=== PATIENT | female | born 1930 | race Caucasian/White ===

== ENCOUNTER 2018-09-22 18:17 | Inpatient (IN) | payer MEDICARE ==
--- OUTSIDE RECORDS SUMMARY | 2018-09-22 19:23 | XMS REPORT | Continuity of Care Document ---
:1930 External Reference #:[id number] Author Name Cherelle Patel O.D. Address [address] [facility] [place] [address] Care Team Providers Name Role Phone Ender Ragland M.D. Primary Care Physician Unavailable Payers Date Identification Numbers Payment Provider Subscriber Policy Number: [id number] [facility] Delmi Calderon Group Number: [id number] [address] [address] PayID: [id number] PHYLLIS Marks [address] Advance Directives Description No Information Available Problems Date Description Provider Status Onset: Essential hypertension Active Onset: Hypercholesterolemia Active Onset: Hypothyroidism Active Onset: Hearing loss Active Onset: 08/27/2018 Vitreous degeneration Cherelle Patel O.D. 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 Family History Date Family Member(s) Observation Comments Father No Current Problems Mother No Current Problems Social History Type Date Description Comments Sex Unknown Marital Status Legal Status: Occupation Self-Employed [email or web address] Work Status Retired ETOH Use Denies alcohol use Tobacco Use Start: Unknown End: Unknown Patient is a former smoker Smoking Status Reviewed: 08/27/18 Patient is a former smoker Allergies, Adverse Reactions, Alerts Date Description Reaction Status Severity Comments 08/27/2018 Sulfa Antibiotics Active Medications Medication Date Status Form Strength Qnty SIG Indications Ordering Provider Sodium Chloride Active Ointment 5% 3.5unit apply to H18.51 Cherelle Ballard (Hypertonic) 019 s right eye dulce maria Patel O.DSada bedtime every night Wilfrido 128 02/18/2 Active Solution 5% 1 drop Cherelle Ballard Amarjit both eyes Jorge, 4 times O.D. daily Diazepam 00/0 Active Tablets 5mg Breiman, 000 Ender M.D. Atorvastatin 0 Active Tablets 10mg Take One Unknown Calcium 000 Tablet By Mouth AT Bedtime Irbesartan 0 Active Tablets 150mg Take 1 Unknown 000 Tablet By Mouth Every Day Synthroid 0 Active Tablets 50mcg Take 1 Unknown 000 Tablet By Mouth Every Day Benadryl 0 Active Tablets 25mg 1 daily Unknown Allergy 000 at at bedtime Immunizations Description No Information Available Vital Signs Description No Information Available Results Description No Information Available Procedures Date Code Description Status 04/04/2013 97694 Determination Of Refractive State Completed 04/04/2013 59993 Est Patient Comprehensive Exam Completed 04/04/2013 13389 Pachymetry Completed 10/12/2011 80201 New Patient Comprehensive Exam Completed 10/12/2011 94327 Pachymetry Completed 09/25/2006 60216 Determination Of Refractive State Completed 09/25/2006 77992 Est Patient Comprehensive Exam Completed 09/25/2006 35149 Pachymetry Completed 10/03/2004 35760 Est Patient Comprehensive Exam Completed 10/03/2004 44268 Pachymetry Completed Encounters Description No Information Available Plan of Treatment 08/27/2018 - Cherelle Patel O.D.H18.51 Endothelial corneal dystrophyNew Medication:Sodium Chloride (Hypertonic) 5 % - apply to right eye at bedtime every nightComments:Smoking can increase the risk of developing or worsening any eye related disease, as well as affect your overall health. If you are a smoker, we strongly recommend that you quit.If you are not a smoker, we strongly recommend that you do not start. 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 This may cause reduced vision. If you are noticing blurred vision, especially in the morning, use Wilfrido 128 ointment inaffected eyes before bedtime. USE ARTIFICIAL TEARS 4 TIMES A DAYH43.813 Vitreous degeneration, bilateralComments: You have Vitreous Floaters. If you have any changed in your floaters or flashing lights, please contact this office.Follow up:3-4 WEEKS DFE
[2018-09-22 19:28] LABS: ABS Basophils 0.2 10^3/ul (0-0.2); ABS Eosinophils 0.1 10^3/ul (0-0.6); ABS Lymphocytes 1.6 10^3/ul (1.0-4.8); ABS Monocytes 0.7 10^3/ul (0-0.8); ABS Neutrophils 14.7 10^3/ul (1.5-7.7); ABS Nucleated RBC 0 10^3/ul; Eosinophil % 0.3 %; Hematocrit 44 % (33-41); Hemoglobin 14.7 g/dL (12.0-16.0); Lymphocyte % 9.1 %; Mean Corpuscular HGB Conc 34 g/dL (31-36); Mean Corpuscular Hemoglobin 32 pg (27-31); Mean Corpuscular Volume 93 fL (80-97); Mean Platelet Volume 8.7 fL (7.4-10.4); Nucleated Red Blood Cells % 0; Platelet Count 275 10^3/uL (150-450); Red Blood Count 4.68 10^6 /uL (3.70-4.87); Red Cell Distribution Width 13 % (10.5-15); White Blood Count 17.2 10^3/uL (3.5-10.8)
[2018-09-22 19:34] LABS: INR 0.85 (0.77-1.02)
[2018-09-22 19:45] LABS: Albumin 4.7 g/dL (3.2-5.2); Albumin/Globulin Ratio 1.5 (1-3); BUN/Creatinine Ratio 13.9 (8-20); C Reactive Protein 7.72 mg/L (<8.01); Calcium 10.2 mg/dL (8.6-10.3); EGFR African American 41.6 (>60); EGFR Non-African American 34.4 (>60); Globulin 3.2 g/dL (2-4); Magnesium 2.4 mg/dL (1.9-2.7); Potassium 4.8 mmol/L (3.5-5.0); Total Bilirubin 0.5 mg/dL (0.2-1.0); Total Protein 7.9 g/dL (6.4-8.9)
[2018-09-22 19:55] LABS: Urine Appearance Cloudy; Urine Bacteria Absent (Absent); Urine Bilirubin Negative (Negative); Urine Blood Negative (Negative); Urine Color Yellow; Urine Glucose Negative (Negative); Urine Ketones Negative (Negative); Urine Nitrite Negative (Negative); Urine Protein 1+(30 mg/dL) (Negative); Urine Red Blood Cell Absent (Absent); Urine Specific Gravity 1.021 (1.010-1.030); Urine Squamous Epithelial Cell Present (Absent); Urine Urobilinogen Negative (Negative); Urine White Blood Cell 1+(6-10/hpf) (Absent)
[2018-09-22] MEDS ORDERED: Morphine 10 MG/ML VIAL (1 ml) IV ONE (20:50)
[2018-09-22] MEDS ORDERED: Ondansetron INJ* 2 MG/ML VIAL IV ONE (20:51)
--- NOTE | 2018-09-22 21:01 | ED ---
Abdominal Pain/Female - HPI Summary HPI Summary: Patient complains of abdominal pain starting this morning. Abdominal pain started under bilateral breasts and to right lower quadrant, described as constant. Patient denies fever, cough, sore throat, CP, SOB, N/V/D, change in urine, change in BM, vaginal symptoms. Medical history is hypothyroid, HDL. Abdominal surgical history is sigmoid resection 2010. - History of Current Complaint Chief Complaint: EDAbdPain Stated Complaint: GROIN PAIN PER EMS Time Seen by Provider: 09/22/18 18:58 Hx Obtained From: Patient Onset/Duration: Sudden Onset Timing: Constant Severity Initially: Severe Severity Currently: Severe Pain Intensity: 8 Pain Scale Used: 0-10 Numeric Location: Diffuse, Discrete At: RLQ Radiates: No Character: Sharp Aggravating Factor(s): Nothing Alleviating Factor(s): Nothing Associated Signs and Symptoms: Positive: Negative Allergies/Adverse Reactions: Allergies Allergy/AdvReac Type Severity Reaction Status Date / Time penicillin G Allergy Rash Verified 09/22/18 22:19 shellfish derived Allergy Hives Verified 09/22/18 22:19 Sulfa (Sulfonamide Allergy Hives Verified 09/22/18 22:19 Antibiotics) Home Medications: Home Medications Glycerin ADULT SUPP* 1 supp NE PRN 09/22/18 [History] PMH/Surg Hx/FS Hx/Imm Hx Endocrine/Hematology History: Denies: Hx Anticoagulant Therapy Cardiovascular History: Reports: Hx Hypercholesterolemia Denies: Hx Pacemaker/ICD GI History: Reports: Hx Gastroesophageal Reflux Disease Musculoskeletal History: Reports: Hx Arthritis Sensory History: Denies: Hx Hearing Aid Opthamlomology History: Denies: Hx Eye Prosthesis Neurological History: Reports: Other Neuro Impairments/Disorders Denies: Hx Dementia Psychiatric History: Reports: Hx Anxiety Denies: Hx Panic Disorder - Surgical History Surgery Procedure, Year, and Place: COLORECTAL- RESECTION. CYST - REMOVED FROM [place] BREAST. TUBAL LIGATION Infectious Disease History: No Infectious Disease History: Denies: Traveled Outside the [place] in Last 30 Days - Family History Known Family History: Negative: Blood Disorder - Social History Alcohol Use: None Substance Use Type: Reports: None Smoking Status (MU): Former Smoker Type: Cigarettes Have You Smoked in the Last Year: No Review of Systems Constitutional: Negative Eyes: Negative ENT: Negative Cardiovascular: Negative Respiratory: Negative Positive: Abdominal Pain Genitourinary: Negative Musculoskeletal: Negative Skin: Negative Neurological: Negative Psychological: Normal All Other Systems Reviewed And Are Negative: Yes Physical Exam - Summary Physical Exam Summary: Palpation of abdomen resulting right lower quadrant pain and ladder were palpated. Lung sounds clear to auscultation bilaterally. RRR. No pain with palpation of chest. Triage Information Reviewed: Yes Vital Signs On Initial Exam: Initial Vitals Temp Pulse Resp BP Pulse Ox 97.7 F 93 15 172/74 99 09/22/18 18:35 09/22/18 18:35 09/22/18 18:35 09/22/18 18:35 09/22/18 18:35 Vital Signs Reviewed: Yes Appearance: Positive: Well-Appearing Skin: Positive: Warm Head/Face: Positive: Normal Head/Face Inspection Eyes: Positive: Normal Neck: Positive: Supple Respiratory/Lung Sounds: Positive: Clear to Auscultation Cardiovascular: Positive: Normal Abdomen Description: Positive: Other: Musculoskeletal: Positive: Normal Neurological: Positive: Normal Psychiatric: Positive: Normal AVPU Assessment: Alert - [place] Coma Scale Best Eye Response: 4 - Spontaneous Best Motor Response: 6 - Obeys Commands Best Verbal Response: 5 - Oriented Coma Scale Total: 15 Diagnostics - Vital Signs Vital Signs Temp Pulse Resp BP Pulse Ox 09/22/18 20:44 98.0 F 92 16 180/71 97 09/22/18 18:35 97.7 F 93 15 172/74 99 - Laboratory Lab Results: Lab Results 09/22/18 09/22/18 09/22/18 Range/Units 19:22 19:22 19:22 WBC 17.2 H (3.5-10.8) 10^3/uL RBC 4.68 (3.70-4.87) 10^6 /uL Hgb 14.7 (12.0-16.0) g/dL Hct 44 H (33-41) % MCV 93 (80-97) fL MCH 32 H (27-31) pg MCHC 34 (31-36) g/dL RDW 13 (10.5-15) % Plt Count 275 (150-450) 10^3/uL MPV 8.7 (7.4-10.4) fL Neut % (Auto) 85.4 % Lymph % (Auto) 9.1 % Crane % (Auto) 4.3 % Eos % (Auto) 0.3 % Baso % (Auto) 0.9 % Absolute Neuts (auto) 14.7 H (1.5-7.7) 10^3/ul Absolute Lymphs (auto) 1.6 (1.0-4.8) 10^3/ul Absolute Monos (auto) 0.7 (0-0.8) 10^3/ul Absolute Eos (auto) 0.1 (0-0.6) 10^3/ul Absolute Basos (auto) 0.2 (0-0.2) 10^3/ul Absolute Nucleated RBC 0 10^3/ul Nucleated RBC % 0 INR (Anticoag Therapy) 0.85 (0.77-1.02) Sodium 141 (135-145) mmol/L Potassium 4.8 (3.5-5.0) mmol/L Chloride 101 (101-111) mmol/L Carbon Dioxide 30 (22-32) mmol/L Anion Gap 10 (2-11) mmol/L BUN 20 (6-24) mg/dL Creatinine 1.44 H (0.51-0.95) mg/dL Est GFR ( Amer) 41.6 (>60) Est GFR (Non-Af Amer) 34.4 (>60) BUN/Creatinine Ratio 13.9 (8-20) Glucose 136 H (70-100) mg/dL Calcium 10.2 (8.6-10.3) mg/dL Magnesium 2.4 (1.9-2.7) mg/dL Total Bilirubin 0.50 (0.2-1.0) mg/dL AST 23 (13-39) U/L ALT 22 (7-52) U/L Alkaline Phosphatase 70 (34-104) U/L Troponin I (<0.04) ng/mL C-Reactive Protein 7.72 (<8.01) mg/L Total Protein 7.9 (6.4-8.9) g/dL Albumin 4.7 (3.2-5.2) g/dL Globulin 3.2 (2-4) g/dL Albumin/Globulin Ratio 1.5 (1-3) Lipase 19 (11.0-82.0) U/L Urine Color Urine Appearance Urine pH (5-9) Ur Specific [place] (1.010-1.030) Urine Protein (Negative) Urine Ketones (Negative) Urine Blood (Negative) Urine Nitrate (Negative) Urine Bilirubin (Negative) Urine Urobilinogen (Negative) Ur Leukocyte Esterase (Negative) Urine WBC (Auto) (Absent) Urine RBC (Auto) (Absent) Ur Squamous Epith Cells (Absent) Urine Bacteria (Absent) Hyaline Casts (Absent) Urine Glucose (Negative) 09/22/18 09/22/18 Range/Units 19:22 19:40 WBC (3.5-10.8) 10^3/uL RBC (3.70-4.87) 10^6 /uL Hgb (12.0-16.0) g/dL Hct (33-41) % MCV (80-97) fL MCH (27-31) pg MCHC (31-36) g/dL RDW (10.5-15) % Plt Count (150-450) 10^3/uL MPV (7.4-10.4) fL Neut % (Auto) % Lymph % (Auto) % Crane % (Auto) % Eos % (Auto) % Baso % (Auto) % Absolute Neuts (auto) (1.5-7.7) 10^3/ul Absolute Lymphs (auto) (1.0-4.8) 10^3/ul Absolute Monos (auto) (0-0.8) 10^3/ul Absolute Eos (auto) (0-0.6) 10^3/ul Absolute Basos (auto) (0-0.2) 10^3/ul Absolute Nucleated RBC 10^3/ul Nucleated RBC % INR (Anticoag Therapy) (0.77-1.02) Sodium (135-145) mmol/L Potassium (3.5-5.0) mmol/L Chloride (101-111) mmol/L Carbon Dioxide (22-32) mmol/L Anion Gap (2-11) mmol/L BUN (6-24) mg/dL Creatinine (0.51-0.95) mg/dL Est GFR ( Amer) (>60) Est GFR (Non-Af Amer) (>60) BUN/Creatinine Ratio (8-20) Glucose (70-100) mg/dL Calcium (8.6-10.3) mg/dL Magnesium (1.9-2.7) mg/dL Total Bilirubin (0.2-1.0) mg/dL AST (13-39) U/L ALT (7-52) U/L Alkaline Phosphatase (34-104) U/L Troponin I 0.01 (<0.04) ng/mL C-Reactive Protein (<8.01) mg/L Total Protein (6.4-8.9) g/dL Albumin (3.2-5.2) g/dL Globulin (2-4) g/dL Albumin/Globulin Ratio (1-3) Lipase (11.0-82.0) U/L Urine Color Yellow Urine Appearance Cloudy Urine pH 7.0 (5-9) Ur Specific [place] 1.021 (1.010-1.030) Urine Protein 1+(30 mg/dl) A (Negative) Urine Ketones Negative (Negative) Urine Blood Negative (Negative) Urine Nitrate Negative (Negative) Urine Bilirubin Negative (Negative) Urine Urobilinogen Negative (Negative) Ur Leukocyte Esterase 2+ A (Negative) Urine WBC (Auto) 1+(6-10/hpf) A (Absent) Urine RBC (Auto) Absent (Absent) Ur Squamous Epith Cells Present A (Absent) Urine Bacteria Absent (Absent) Hyaline Casts Present A (Absent) Urine Glucose Negative (Negative) Result Diagrams: 09/22/18 19:22 09/22/18 19:22 Lab Statement: Any lab studies that have been ordered have been reviewed, and results considered in the medical decision making process. Abdominal Pain Fem Course/Dx - Course Course Of Treatment: Patient complains of abdominal pain starting this morning. Abdominal pain started under bilateral breasts and to right lower quadrant, described as constant. Patient denies fever, cough, sore throat, CP, SOB, N/V/D , change in urine, change in BM, vaginal symptoms. Medical history is hypothyroid, HDL. Abdominal surgical history is sigmoid resection 2010. Physical exam:Palpation of abdomen resulting right lower quadrant pain and ladder were palpated. Lung sounds clear to auscultation bilaterally. RRR. No pain with palpation of chest. Vital signs within normal limits. WBC 17.2. CR 1.44. Last prior creatinine level taken [address]A [address] UTI. CT abdomen and pelvis without contrast positive for dilated appendix with multiple appendicoliths, positive for fluid, negative for inflammatory changes in adjacent mesentery. Discussed patient with Dr. pierre [facility] surgery cotton factor who recommended admission to hospitalist and he will consult tomorrow. Admission to hospitalist. - Diagnoses Provider Diagnoses: Appendicitis Discharge - Sign-Out/Discharge Documenting (check all that apply): Patient Departure Patient Received Moderate/Deep Sedation with Procedure: No - Discharge Plan Condition: Stable Disposition: HOME - Billing Disposition and Condition Condition: STABLE Disposition: Home
[2018-09-22] MEDS ORDERED: Magnesium Hydroxide LIQ* 30 ML UDC PO PRN (22:13)
[2018-09-22] MEDS ORDERED: Diazepam TAB(*) 5 MG PO PRN (22:13)
[2018-09-22] MEDS ORDERED: Piperacillin/Tazobac ADVAN(*) 3.375 GM in NS 0.9% 100 ML* 100 ML IVPB ONE (22:15)
[2018-09-22] MEDS ORDERED: Acetaminophen TAB* 325 MG PO PRN (22:15)
[2018-09-22] MEDS ORDERED: Lactated Ringers 1000 ML Bag* 1,000 ML IV.FLUID IV ONE (22:15)
[2018-09-22] MEDS ORDERED: PROCHLORPERAZINE INJ 5 MG/ML 2 ML VIAL IV PRN (22:15)
[2018-09-22] MEDS ORDERED: hydrALAZINE IV* 20 MG/ML VIAL IV SLOW PU PRN (22:16)
[2018-09-22] MEDS ORDERED: Morphine 4 MG/ML VIAL (1 ml) 4 MG/ML VIAL IV PRN (22:18)
[2018-09-22] MEDS ORDERED: Zosyn per Pharmacy* NOTE FOLLOW UP SCH (23:00)
[2018-09-22] MEDS ORDERED: Cefepime(*) 1 GM in NS 0.9% 50 ML* 50 ML IVPB ONE (23:17)
[2018-09-23] MEDS ORDERED: NS 0.9% 50 ML* 50 ML ONE
--- NOTE | 2018-09-23 00:13 | HP ---
CC: Dr. Ragland; Dr. Rizo HISTORY AND PHYSICAL: DATE OF ADMISSION: 09/22/18 TIME OF EVALUATION: 10 p.m. PRIMARY CARE PROVIDER: Dr. Ragland. CONSULTING GENERAL SURGEON: Dr. Rizo. CHIEF COMPLAINT: Abdominal pain. HISTORY OF PRESENT ILLNESS: Mrs. Calderon is an 88-year-old lady with a past medical history of anxiet y, hypertension, hyperlipidemia, hypothyroidism, sigmoid colectomy secondary to sigmoid polyp, who pr esented to the emergency room with complaints of abdominal pain. The patient states she woke up in her usual state of health, and around 11 a.m., she started to have epigastric pain radiating to under her breast. She thought that her bra was chafing her skin, so she removed her bra, but the pain persisted, and as the day went by, the pain traveled to her lower abdo men, mostly on the right lower quadrant. The patient states that she was very concerned as her mothe r had right lower quadrant pain for a week, and by the time she sought medical attention, she had per forated appendicitis. So, the patient came to the emergency room today concerned with that possibili ty. She states she had a regular breakfast of cereal, but later on her appetite was gone and she has not had any food since 8 in the morning. She denies nausea and vomiting. She describes a small formed b owel movement earlier today. There is no fever, chills, chest pain, palpitation, shortness of breath , cough, or urinary complaints. PAST MEDICAL HISTORY: 1. Hypertension. 2. Hyperlipidemia. 3. Anxiety. 4. Hypothyroidism. 5. Status post laparoscopic tubal ligation. 6. History of right ankle and left wrist fractures. 7. Status post laparoscopic sigmoid resection secondary to sigmoid polyp. Pathology revealed to an a denomatous polyp with no high-grade dysplasia or malignancy. MEDICATION LIST: 1. Acetaminophen 500 mg p.o. b.i.d. 2. Atorvastatin 10 mg p.o. daily. 3. Diazepam 5 mg p.o. b.i.d. as needed for anxiety. The patient states that she tried to quit this medication in the past but developed severe muscle spasms. 4. Irbesartan 150 mg p.o. daily. 5. Levothyroxine 50 mcg p.o. daily. 6. Milk of magnesia 15 mL p.o. daily. ALLERGIES: To PENICILLIN, SHELLFISH, and SULFA. FAMILY HISTORY: Mother had perforated appendicitis and also rectal cancer. SOCIAL HISTORY: The patient was a smoker until 2010, but she has quit. No history of alcohol or rayo g use. Surrogate decision maker is her sister, Barbara Meyer, phone number is [phone]. REVIEW OF SYSTEMS: A 14-point review of systems was performed and all the pertinent negative and pos itive findings are in the HPI. PHYSICAL EXAMINATION GENERAL: The patient is a pleasant elderly lady, lying in the stretcher, in no acute distress. VITAL SIGNS: Temperature 98.0, heart rate is 97, respiratory rate is 17, oxygen saturation 97% on ro om air, blood pressure is 172/74. HEENT: Pupils are equal. Moist mucous membranes. CHEST: Breath sounds present bilaterally with no added sounds. CVS: Normal S1, S2. Regular rate and rhythm. ABDOMEN: Obese, soft with right lower quadrant tenderness. No guarding. No rebound. Bowel sounds are present. EXTREMITIES: No edema. NEURO: She is alert and oriented x3. Able to move all 4 extremities. LABORATORY AND IMAGING DATA: The patient had a CBC that showed a WBC of 17.2, hemoglobin of 14.7, h ematocrit of 44, platelets of 275 with 85% neutrophils. INR is 0.85. Chemistries are sodium of 141, potassium of 4.8, chloride of 101, bicarb of 30, BUN of 20, creatinine of 1.4, glucose of 136, calci um of 10.2, magnesium of 2.4. LFTs are normal. Lipase is 19. Troponin 0.01. Urinalysis showed 1 + protein, 2+ leukocyte esterase, 1+ wbc's, but squamous epithelial cells are pre sent. CT of the abdomen and pelvis without contrast showed dilated appendix with multiple appendicolith, bu t no inflammatory changes in the adjacent mesentery. Findings could represent early appendicitis. Chest x-ray has not been officially read, but to my read there is no acute pulmonary disease. EKG done on 09/22/18 at 8 p.m. showed sinus rhythm at 96 beats per minute with no acute ischemic dawson ges, no significant change when compared to prior EKG from April 2011. ASSESSMENT AND PLAN: Ms. Calderon is an 88-year-old lady with a past medical history of hypertension, hyperlipidemia, hypothyroidism, anxiety who presented to the emergency room with less than 12 hours o f abdominal pain, now localized to her right lower quadrant with CT findings that suggest early appen dicitis. 1. Sepsis. The patient's presentation is compatible with sepsis with tachycardia and leukocytosis. QSOFA is 0. Source is probable early appendicitis. The patient will receive IV fluids, blood cultu res will be sent, and we are going to check a lactic acid. She will be started empirically on Zosyn. 2. Probable early appendicitis. General Surgery (Dr. Rizo) was called by the emergency room provi og and the plan at this point is to continue treatment with antibiotics and she will be seen in cons ultation. Hopefully, she will respond to conservative treatment and will not require surgery. We wi ll continue pain medications. 3. Hypertension. It is on the higher side. She will have her ARB order but also have hydralazine p .r.n. 4. Hypothyroidism. Continue levothyroxine. 5. Hyperlipidemia. Continue atorvastatin. 6. Anxiety. We will continue diazepam. The patient states that in the past when she tried to stop taking this medication she had "horrible muscle spasms." 7. DVT prophylaxis. The patient has a score of 4 on the DVT Prophylaxis Assessment Guide and she wi ll have SCDs for now as there is a possibility of needing surgery in the near future. 8. Code status is full. TIME SPENT: Approximately 50 minutes was spent with patient interview, medical records review, physi cameron examination to complete this admission; more than half this time was spent [id number] with the patient in coordination of care. [id number]/[facility] #: [id number]
[2018-09-23] MEDS: Morphine 4 MG/ML VIAL (1 ml) 4 MG/ML VIAL IV PRN ×3 (03:35→18:47)
[2018-09-23] MEDS: Lactated Ringers 1000 ML Bag* 1,000 ML IV SCH ×4 (03:51→21:12)
--- NOTE | 2018-09-23 04:01 | PN ---
Hospitalist Progress Note Date of Service: 09/23/18 HOSPITALIST ADDENDUM Called by RN because LA is 6.3. Patient re-evaluated at bedside. Selected Entries 09/23/18 09/23/18 00:49 03:27 Temperature 98.3 F Pulse Rate 111 Respiratory 20 Rate Blood Pressure 188/84 (mmHg) O2 Sat by Pulse 95 Oximetry Elderly lady lying in bed, appears uncomfortable, but not in distress. CVS: normal S1 and S2, RRR Chest: BS+ bilaterally with no added sounds Abd: obese, soft, RLQ tenderness, + rebound, BS+ diminished Neuro: AAOx3, JAIMES A/P: Severe sepsis secondary to intra-abdominal source (?early appendicitis) - Case d/w Dr Funes and Dr Rizo. - Transfer to ICU. - Continue IVF and monitor LA - she has good capillary refill, good mentation. - Place Mckay to monitor UO. - Add Flagyl.
[2018-09-23] MEDS: metroNIDAZOLE IV 500 MG/100ML* 500 MG/100 ML BAG IVPB SCH ×3 (04:34→21:45)
[2018-09-23] MEDS ORDERED: Morphine 4 MG/ML VIAL (1 ml) 4 MG/ML VIAL IV ONE (04:34)
[2018-09-23] MEDS: Levothyroxine TAB* 50 MCG TAB PO SCH (05:13)
[2018-09-23] MEDS ORDERED: fentaNYL* 50 MCG/ML 2 ML VIAL (100 MCG VIAL) ONE ×2 (05:24→06:14)
[2018-09-23] MEDS ORDERED: Propofol* 10 MG/ML 20 ML BTL ONE (05:24)
[2018-09-23] MEDS ORDERED: Midazolam* 1 MG/ML 2 ML VIAL (2 MG) ONE (05:24)
[2018-09-23] MEDS ORDERED: Phenylephrine 10 MG/ML VIAL* 1 ML VIAL ONE (05:24)
[2018-09-23] MEDS ORDERED: Ondansetron INJ* 2 MG/ML VIAL ONE (05:24)
[2018-09-23] MEDS ORDERED: Cisatracurium* 2 MG/ML MDV 5 ML ONE (05:24)
[2018-09-23] MEDS ORDERED: Dexamethasone IV* 4 MG/ML 1 ML (4 MG) ONE (05:24)
[2018-09-23] MEDS ORDERED: Lidocaine 2% PF * 5 ML VIAL ONE (05:24)
[2018-09-23 05:40] LABS: Urine Appearance Clear; Urine Bacteria Absent (Absent); Urine Bilirubin Negative (Negative); Urine Blood Negative (Negative); Urine Color Yellow; Urine Glucose Negative (Negative); Urine Ketones Negative (Negative); Urine Nitrite Negative (Negative); Urine Protein 1+(30 mg/dL) (Negative); Urine Red Blood Cell Trace(0-2/hpf) (Absent); Urine Specific Gravity 1.017 (1.010-1.030); Urine Urobilinogen Negative (Negative); Urine White Blood Cell Trace(0-5/hpf) (Absent)
[2018-09-23] MEDS ORDERED: Acetaminophen IV 1GM/100ML * 1,000 MG/100 ML VIAL IVPB ONE (06:36)
[2018-09-23] MEDS ORDERED: fentaNYL* 50 MCG/ML 2 ML VIAL (100 MCG VIAL) IV PRN (06:36)
[2018-09-23] MEDS ORDERED: Naloxone* 0.4 MG/ML 1 ML VIAL IV PRN (06:36)
[2018-09-23] MEDS ORDERED: Ondansetron INJ* 2 MG/ML VIAL IV PRN (06:36)
[2018-09-23] MEDS ORDERED: Neostigmine Methylsulfate* 1 MG/ML 10 ML VIAL (1 mg/ml) ONE (06:38)
[2018-09-23] MEDS ORDERED: Glycopyrrolate IV* 0.2 MG/ML 1 ML VIAL ONE (06:38)
--- NOTE | 2018-09-23 06:54 | CONS ---
CC: Donald Rizo MD; Dr. Ragland CONSULTATION REPORT: DATE OF CONSULT: HISTORY: Ms. Calderon is an 88-year-old female in reasonable health for age who presented to the [facility] en[facility] room with abdominal pain that started a kind of epigastric or inframammary, but then gradually s hifted to the lower abdomen, more on the right than on the left. She ate normally yesterday, but her appetite has since gone. She has not had nausea and vomiting. She had some bowel movement yesterda y. No blood in the stool or urine. She has had a previous sigmoid colectomy about 8 years ago for b enign disease. PAST MEDICAL HISTORY: Most significant for hypertension, anxiety, and hypothyroidism. PHYSICAL EXAMINATION: She is a well-developed, well-nourished, elderly female consistent with stated age. Skin is warm and well perfused. She is not diaphoretic. She is not jaundiced. She is alert and coherent. She is tachycardic and hypertensive and maintaining good oxygenation on room air. Abd omen is obese and somewhat guarded on exam. She is a quite tender all across the lower abdomen that seems to be more on the right than on the left. She does have cough tenderness and some mild rebound tenderness. There are no obvious masses. No obvious hernias. DIAGNOSTIC STUDIES/LAB DATA: Show a white blood count of 17,000 with may be a little left shift and electrolytes are essentially normal. Creatinine is slightly elevated at 1.4 and she does have a lact ic acidosis. CT scan done earlier this evening shows appendiceal fecal lithiasis with dilated append ix, but no evidence of acute inflammation. IMPRESSION: An 88-year-old female with severe abdominal pain starting to develop peritoneal findings with appendiceal fecal lithiasis, now concerning for possible perforation of the fecalith. I discuss ed this with Dr. De La Cruz and with the patient and I recommend going to the operating room for laparosc opic appendectomy. She understands the procedure, the rationale, the risks, and the potential recove ry. All of her questions have been answered and we will proceed to the operating room [facility]. [id number]/[facility] #: [id number]
[2018-09-23 07:39] LABS: Hematocrit 43 % (33-41); Hemoglobin 14.1 g/dL (12.0-16.0); Mean Corpuscular HGB Conc 33 g/dL (31-36); Mean Corpuscular Hemoglobin 31 pg (27-31); Mean Corpuscular Volume 95 fL (80-97); Mean Platelet Volume 9.3 fL (7.4-10.4); Platelet Count 249 10^3/uL (150-450); Red Blood Count 4.52 10^6 /uL (3.70-4.87); Red Cell Distribution Width 13 % (10.5-15); White Blood Count 18.2 10^3/uL (3.5-10.8)
[2018-09-23 07:46] LABS: BUN/Creatinine Ratio 12.1 (8-20); Calcium 8.8 mg/dL (8.6-10.3); EGFR African American 49.4 (>60); EGFR Non-African American 40.8 (>60); Potassium 4.5 mmol/L (3.5-5.0)
[2018-09-23 08:10] LABS: ABS Neutrophils 16.2 10^3/ul (1.5-7.7); Immature Granulocytes 5 % (0-9); Lymphocytes % 5 %; Monocytes % 6 %; Myelocytes % 1 % (0-1); Neutrophil % 84 %
--- NOTE | 2018-09-23 08:49 | OP ---
CC: Dr. Donald Rizo; Dr. Ragland OPERATIVE REPORT: DATE OF OPERATION: 09/23/18 DATE OF : [birth year] SURGEON: Dr. Donald Rizo. WINCH OPERATOR: None. ANESTHESIOLOGIST: Dr. Erickson. ANESTHESIA: General anesthetic, local infiltration. PRE-OP DIAGNOSIS: Perforated appendicitis. POST-OP DIAGNOSIS: Perforated appendicitis. OPERATIVE PROCEDURE: Laparoscopic appendectomy. DESCRIPTION OF PROCEDURE: The patient was laid supine on the operative table. After adequate general anesthetic, compression stockings, and warmer shoes, abdomen was prepped, draped in a sterile fashio n. Local infiltrative anesthesia was administered. A small umbilical incision was created. Blunt p ort cannula was placed and insufflation was carried out with carbon dioxide. Under direct vision, le ft lower quadrant and left midabdominal 5 mm cannulae were placed. There was cloudy drainage in the pelvis and some purulent exudate. The appendix was visualized and appeared to be perforation at the midportion of the appendix. The mesoappendix was divided using an EndoGIA stapler munguia load and the base of the appendix with an EndoGIA stapler villalba load. Appendix was placed in retrieval bag and brou ght out through the umbilical site. The operative field was irrigated with warm saline solution, eliz e fluid was suctioned out. A culture of the peritoneal fluid had been taken and after adequate sucti oning, everything was in good condition. Hemostasis was good at the staple line. The cannulae were removed. Pneumoperitoneum allowed to escape. The umbilical fascia was closed with 0-Vicryl. Skin was closed with 5-0 Vicryl, followed by Steri-Strips. She tolerated the procedure well, was awakened, and brought to recovery in good condition. COMPLICATIONS: No complications. DRAINS: No drains. PATHOLOGIC SPECIMEN: Appendix. COUNTS: Sponge and instrument counts were correct. ESTIMATED BLOOD LOSS: Less than 30 mL. [id number]/[facility] #: [id number]
[2018-09-23] MEDS: Atorvastatin* 10 MG TAB PO SCH (08:58)
[2018-09-23] MEDS ORDERED: Losartan TAB* 25 MG PO SCH (09:00)
--- NOTE | 2018-09-23 09:11 | PN ---
Sepsis Event Evaluation Date of Evaluation: 09/23/18 Time of Evaluation: 07:00 Current Stage of Sepsis: Septic Shock Vital Signs - Last 12 Hours: Vital Signs - 12 hr Temp Pulse Resp BP Pulse Ox 09/23/18 09:01 100.6 F 111 19 95 09/23/18 09:00 100.8 F 115 24 133/67 95 09/23/18 08:58 23 09/23/18 08:30 100.8 F 112 20 111/83 94 09/23/18 08:02 100.6 F 132 20 139/70 95 09/23/18 08:01 100.6 F 134 22 154/133 95 09/23/18 07:59 100.6 F 130 26 139/70 90 09/23/18 07:46 100.4 F 130 28 119/62 98 09/23/18 07:30 100.2 F 131 30 188/84 98 18/ 07:23 100.2 F 135 21 175/85 94 09/23/18 07:22 100.2 F 124 33 97 09/23/18 07:01 99.7 F 120 32 183/84 100 18 06:55 99.7 F 119 29 177/72 98 18/19 06:52 119 87 18/ 06:51 97.5 F 120 153/80 86 18/19 05:30 100.9 F 120 22 151/78 97 18/19 05:15 22 09/23/ 05:12 18 09/23/18 05:00 100.9 F 120 27 186/86 98 18/19 04:56 99.3 F 120 22 186/86 98 18/19 04:45 100.8 F 120 22 187/89 99 18/19 04:30 100.2 F 117 21 210/92 99 18/19 04:18 122 28 189/92 92 18/19 04:15 22 18/19 03:35 20 18/19 03:27 111 20 188/84 18/19 01:25 20 18/19 00:49 98.3 F 113 19 199/65 95 18/ 00:21 98.1 F 117 17 170/93 94 09/22/ 21:59 98.0 F 97 17 191/80 97 09/22/18 21:49 16 Lactic Acid: 09/23/18 09/23/18 02:44 07:00 Lactic Acid 6.3 H* 4.4 H* Exceptions to Standard of Care: Patient with good BP, good capillary refill, good UO and responding to IVF, so will not start pressors for now. - Cardiopulmonary Exam Capillary Refill: Immediate Respiratory: Symmetrical Chest Expansion and Respiratory Effort, Clear to Auscultation Cardiovascular: RRR - Normal S1 and S2 - Peripheral Pulse Exam Radial Pulses: Bilateral Normal Pedal Pulses: Bilateral Normal Posterior Tibial Pulse: Bilateral Normal Femoral Pulses: Bilateral Normal Popliteal Pulses: Bilateral Normal - Skin Exam Skin Exam: Normal Turgor - [place] Coma Scale Best Eye Response: 4 - Spontaneous Best Motor Response: 6 - Obeys Commands Best Verbal Response: 5 - Oriented Coma Scale Total: 15 Assess/Plan/Problems-Billing Assessment: Septic shock secondary to appendicitis. Taken to OR and found to have perforated appy. Responding to IVF with improvement of LA to 4.4.
--- NOTE | 2018-09-23 14:18 | PN ---
Subjective Interval History: Pt post-op this morning. She reports feeling better than when she came in - only with mild fatigue and abdominal pain, both improved from before. Asking for water and food. Last fever was this morning, 100.4 at 9 AM. Was started on cefepime / Flagyl overnight. Objective Active Medications: Acetaminophen (Tylenol Tab*) 650 mg PO Q6H PRN PRN Reason: pain/fever Atorvastatin Calcium (Lipitor*) 10 mg PO DAILY [facility] Last Admin: 09/23/18 08:58 Dose: 10 mg Diazepam (Valium Tab(*)) 5 mg PO BID PRN PRN Reason: ANXIETY Cefepime HCl (Maxipime 1 Gm In Dextrose Duplex (*)) 1 gm in 50 mls @ 100 mls/ hr IV Q24H [facility] Metronidazole/Sodium Chloride (Flagyl 500 Mg Ivpb*) 500 mg in 100 mls @ 100 mls /hr IVPB Q8H [facility] Last Admin: 09/23/18 11:47 Dose: 100 mls/hr Lactated Ringer's (Lactated Ringers 1000 Ml Bag*) 1,000 mls @ 100 mls/hr IV .PER RATE [facility] Last Admin: 09/23/18 13:52 Dose: 100 mls/hr Levothyroxine Sodium (Synthroid Tab*) 50 mcg PO DAILY@0600 [facility] Last Admin: 09/23/18 05:13 Dose: Not Given Magnesium Hydroxide (Milk Of Magnesia Liq*) 15 ml PO DAILY PRN PRN Reason: CONSTIPATION Morphine Sulfate (Morphine Vial*) 1 mg IV Q2H PRN PRN Reason: SEVERE PAIN Last Admin: 09/23/18 08:58 Dose: 1 mg Prochlorperazine Edisylate (Compazine Inj*) 5 mg IV Q6H PRN PRN Reason: NAUSEA/VOMITING Vital Signs - 8 hr 09/23/18 09/23/18 09/23/18 06:51 06:52 06:55 Temperature 97.5 F 99.7 F Pulse Rate 120 119 119 Respiratory 29 Rate Blood Pressure 153/80 177/72 (mmHg) O2 Sat by Pulse 86 87 98 Oximetry 09/23/18 09/23/18 09/23/18 07:01 07:22 07:23 Temperature 99.7 F 100.2 F 100.2 F Pulse Rate 120 124 135 Respiratory 32 33 21 Rate Blood Pressure 183/84 175/85 (mmHg) O2 Sat by Pulse 100 97 94 Oximetry 09/23/18 09/23/18 09/23/18 07:30 07:46 07:59 Temperature 100.2 F 100.4 F 100.6 F Pulse Rate 131 130 130 Respiratory 30 28 26 Rate Blood Pressure 188/84 119/62 139/70 (mmHg) O2 Sat by Pulse 98 98 90 Oximetry 09/23/18 09/23/18 09/23/18 08:00 08:01 08:02 Temperature 100.6 F 100.6 F Pulse Rate 134 132 Respiratory 24 22 20 Rate Blood Pressure 154/133 139/70 (mmHg) O2 Sat by Pulse 95 95 95 Oximetry 09/23/18 09/23/18 09/23/18 08:30 08:58 09:00 Temperature 100.8 F 100.8 F Pulse Rate 112 115 Respiratory 20 23 24 Rate Blood Pressure 111/83 133/67 (mmHg) O2 Sat by Pulse 94 95 Oximetry 09/23/18 09/23/18 09/23/18 09:01 09:30 10:00 Temperature 100.6 F 100.4 F 100.0 F Pulse Rate 111 103 106 Respiratory 19 9 21 Rate Blood Pressure 90/55 (mmHg) O2 Sat by Pulse 95 94 95 Oximetry 09/23/18 09/23/18 09/23/18 10:01 10:31 11:00 Temperature 99.7 F 99.9 F 99.1 F Pulse Rate 102 92 90 Respiratory 18 18 25 Rate Blood Pressure 105/70 112/63 108/56 (mmHg) O2 Sat by Pulse 95 94 94 Oximetry 09/23/18 13:53 Temperature 97.2 F Pulse Rate 92 Respiratory 16 Rate Blood Pressure 125/48 (mmHg) O2 Sat by Pulse 98 Oximetry Oxygen Devices in Use Now: Simple Face Mask - 4L Appearance: nontoxic, comfortable Respiratory: - - clear anteriorly Cardiovascular: RRR Abdominal: - - soft, mild ttp diffusely, no guarding; 3 port sites c/d/i covered in steri strips Result Diagrams: 09/23/18 07:17 09/23/18 07:17 Additional Lab and Data: Lab Results 09/22/18 09/22/18 09/22/18 Range/Units 19:22 19:22 19:22 WBC 17.2 H (3.5-10.8) 10^3/uL RBC 4.68 (3.70-4.87) 10^6 /uL Hgb 14.7 (12.0-16.0) g/dL Hct 44 H (33-41) % MCV 93 (80-97) fL MCH 32 H (27-31) pg MCHC 34 (31-36) g/dL RDW 13 (10.5-15) % Plt Count 275 (150-450) 10^3/uL MPV 8.7 (7.4-10.4) fL Neut % (Auto) 85.4 % Lymph % (Auto) 9.1 % [place] % (Auto) 4.3 % Eos % (Auto) 0.3 % Baso % (Auto) 0.9 % Absolute Neuts (auto) 14.7 H (1.5-7.7) 10^3/ul Absolute Lymphs (auto) 1.6 (1.0-4.8) 10^3/ul Absolute Monos (auto) 0.7 (0-0.8) 10^3/ul Absolute Eos (auto) 0.1 (0-0.6) 10^3/ul Absolute Basos (auto) 0.2 (0-0.2) 10^3/ul Absolute Nucleated RBC 0 10^3/ul Nucleated RBC % 0 INR (Anticoag Therapy) 0.85 (0.77-1.02) Sodium 141 (135-145) mmol/L Potassium 4.8 (3.5-5.0) mmol/L Chloride 101 (101-111) mmol/L Carbon Dioxide 30 (22-32) mmol/L Anion Gap 10 (2-11) mmol/L BUN 20 (6-24) mg/dL Creatinine 1.44 H (0.51-0.95) mg/dL Est GFR ( Amer) 41.6 (>60) Est GFR (Non-Af Amer) 34.4 (>60) BUN/Creatinine Ratio 13.9 (8-20) Glucose 136 H (70-100) mg/dL Calcium 10.2 (8.6-10.3) mg/dL Magnesium 2.4 (1.9-2.7) mg/dL Total Bilirubin 0.50 (0.2-1.0) mg/dL AST 23 (13-39) U/L ALT 22 (7-52) U/L Alkaline Phosphatase 70 (34-104) U/L Troponin I (<0.04) ng/mL C-Reactive Protein 7.72 (<8.01) mg/L Total Protein 7.9 (6.4-8.9) g/dL Albumin 4.7 (3.2-5.2) g/dL Globulin 3.2 (2-4) g/dL Albumin/Globulin Ratio 1.5 (1-3) Lipase 19 (11.0-82.0) U/L Urine Color Urine Appearance Urine pH (5-9) Ur Specific [place] (1.010-1.030) Urine Protein (Negative) Urine Ketones (Negative) Urine Blood (Negative) Urine Nitrate (Negative) Urine Bilirubin (Negative) Urine Urobilinogen (Negative) Ur Leukocyte Esterase (Negative) Urine WBC (Auto) (Absent) Urine RBC (Auto) (Absent) Ur Squamous Epith Cells (Absent) Urine Bacteria (Absent) Hyaline Casts (Absent) Urine Glucose (Negative) 09/22/18 09/22/18 Range/Units 19:22 19:40 WBC (3.5-10.8) 10^3/uL RBC (3.70-4.87) 10^6 /uL Hgb (12.0-16.0) g/dL Hct (33-41) % MCV (80-97) fL MCH (27-31) pg MCHC (31-36) g/dL RDW (10.5-15) % Plt Count (150-450) 10^3/uL MPV (7.4-10.4) fL Neut % (Auto) % Lymph % (Auto) % [place] % (Auto) % Eos % (Auto) % Baso % (Auto) % Absolute Neuts (auto) (1.5-7.7) 10^3/ul Absolute Lymphs (auto) (1.0-4.8) 10^3/ul Absolute Monos (auto) (0-0.8) 10^3/ul Absolute Eos (auto) (0-0.6) 10^3/ul Absolute Basos (auto) (0-0.2) 10^3/ul Absolute Nucleated RBC 10^3/ul Nucleated RBC % INR (Anticoag Therapy) (0.77-1.02) Sodium (135-145) mmol/L Potassium (3.5-5.0) mmol/L Chloride (101-111) mmol/L Carbon Dioxide (22-32) mmol/L Anion Gap (2-11) mmol/L BUN (6-24) mg/dL Creatinine (0.51-0.95) mg/dL Est GFR ( Amer) (>60) Est GFR (Non-Af Amer) (>60) BUN/Creatinine Ratio (8-20) Glucose (70-100) mg/dL Calcium (8.6-10.3) mg/dL Magnesium (1.9-2.7) mg/dL Total Bilirubin (0.2-1.0) mg/dL AST (13-39) U/L ALT (7-52) U/L Alkaline Phosphatase (34-104) U/L Troponin I 0.01 (<0.04) ng/mL C-Reactive Protein (<8.01) mg/L Total Protein (6.4-8.9) g/dL Albumin (3.2-5.2) g/dL Globulin (2-4) g/dL Albumin/Globulin Ratio (1-3) Lipase (11.0-82.0) U/L Urine Color Yellow Urine Appearance Cloudy Urine pH 7.0 (5-9) Ur Specific [place] 1.021 (1.010-1.030) Urine Protein 1+(30 mg/dl) A (Negative) Urine Ketones Negative (Negative) Urine Blood Negative (Negative) Urine Nitrate Negative (Negative) Urine Bilirubin Negative (Negative) Urine Urobilinogen Negative (Negative) Ur Leukocyte Esterase 2+ A (Negative) Urine WBC (Auto) 1+(6-10/hpf) A (Absent) Urine RBC (Auto) Absent (Absent) Ur Squamous Epith Cells Present A (Absent) Urine Bacteria Absent (Absent) Hyaline Casts Present A (Absent) Urine Glucose Negative (Negative) Microbiology and Other Data: Microbiology 09/23/18 06:20 Gram Stain - Final Misc Fluid (See Comment) - Other Assess/Plan/Problems-Billing Assessment: 88W with HTN, hypothyroid, anxiety, who presented with acute abdominal pain and septic shock, with CT concerning for appendicitis, taken to OR and found to have perforated appy. Now s/p appendectomy on IV abx and IVF with improvement in clinical status. - Patient Problems (1) Appendicitis with perforation Comment: found with perforated appendicitis on ex lap, now s/p appy on 09/23. - cont IVF until eating better and lactate normal - continue cefepime and Flagyl pending cultures - advance diet as tolerated (2) Hypertension Comment: holding home irbesartan 150mg in setting of septic shock - monitor BP closely and restart when indicated (3) Hypothyroid Comment: - cont home levothyroxine 50mcg daily (4) Anxiety Comment: - cont home diazepam 5mg bid prn (5) DVT prophylaxis Comment: SCDs while post-op. OOB and work with PT. Pending surgery clearance for subq heparin. Status and Disposition: Inpatient medical floors post-op.
[2018-09-23] MEDS ORDERED: Polyethylene Glycol 3350* 17 GM PACKET PO PRN (14:39)
[2018-09-23] MEDS ORDERED: HYDROmorphone INJ1* 1 MG/ML SYRINGE IV SLOW PU PRN (21:57)
[2018-09-23] MEDS: Cefepime 1 GM in Dextrose(*) 1 GM/50 ML BAG IV SCH (23:24)
[2018-09-24] MEDS: metroNIDAZOLE IV 500 MG/100ML* 500 MG/100 ML BAG IVPB SCH ×3 (03:14→21:26)
[2018-09-24] MEDS: Levothyroxine TAB* 50 MCG TAB PO SCH (05:15)
[2018-09-24 07:24] LABS: ABS Basophils 0 10^3/ul (0-0.2); ABS Eosinophils 0 10^3/ul (0-0.6); ABS Lymphocytes 0.9 10^3/ul (1.0-4.8); ABS Monocytes 0.8 10^3/ul (0-0.8); ABS Neutrophils 13.2 10^3/ul (1.5-7.7); ABS Nucleated RBC 0 10^3/ul; Eosinophil % 0 %; Hematocrit 35 % (33-41); Hemoglobin 11.2 g/dL (12.0-16.0); Lymphocyte % 5.8 %; Mean Corpuscular HGB Conc 33 g/dL (31-36); Mean Corpuscular Hemoglobin 31 pg (27-31); Mean Corpuscular Volume 96 fL (80-97); Mean Platelet Volume 9.2 fL (7.4-10.4); Nucleated Red Blood Cells % 0; Platelet Count 175 10^3/uL (150-450); Red Blood Count 3.61 10^6 /uL (3.70-4.87); Red Cell Distribution Width 14 % (10.5-15); White Blood Count 14.8 10^3/uL (3.5-10.8)
[2018-09-24 07:30] LABS: Calcium 8.4 mg/dL (8.6-10.3); EGFR African American 44.8 (>60); Potassium 4.8 mmol/L (3.5-5.0)
--- NOTE | 2018-09-24 08:21 | PN ---
Progress Note - Progress Note Date of Service: 09/24/18 Note: POD#1 s/p perf appx Tm 99 VS noted voiding stella some po's No N/V Pain control OK Abd soft, top steep tender, incis clean Cont current abx pending C&S Advance diet as stella.
[2018-09-24] MEDS ORDERED: oxyCODONE/Acetamin 5/325 MG* TAB PO PRN (08:22)
[2018-09-24] MEDS: Atorvastatin* 10 MG TAB PO SCH (09:01)
--- NOTE | 2018-09-24 20:14 | PN ---
Subjective Interval History: Pt reports improved abdominal pain this AM. She had a BM earlier. She is tolerating an advanced diet. No fever for > 24h. Morning labs with resolved lactate but drop in Hgb. All cell lines are down so I suspect this is dilutional after significant IVF yesterday for lactic acidosis. Objective Active Medications: Atorvastatin Calcium (Lipitor*) 10 mg PO DAILY [facility] Last Admin: 09/24/18 09:01 Dose: 10 mg Hydromorphone HCl (Dilaudid Inj1s*) 1 mg IV SLOW PU Q3H PRN PRN Reason: PAIN Last Admin: 09/24/18 00:14 Dose: 1 mg Cefepime HCl (Maxipime 1 Gm In Dextrose Duplex (*)) 1 gm in 50 mls @ 100 mls/ hr IV Q24H [facility] Last Admin: 09/23/18 23:24 Dose: 100 mls/hr Metronidazole/Sodium Chloride (Flagyl 500 Mg Ivpb*) 500 mg in 100 mls @ 100 mls /hr IVPB Q8H [facility] Last Admin: 09/24/18 12:35 Dose: 100 mls/hr Levothyroxine Sodium (Synthroid Tab*) 50 mcg PO DAILY@0600 [facility] Last Admin: 09/24/18 05:15 Dose: 50 mcg Oxycodone/Acetaminophen (Percocet 5/325 Tab*) 1 tab PO Q6H PRN PRN Reason: PAIN Last Admin: 09/24/18 09:01 Dose: 1 tab Polyethylene Glycol/Electrolytes (Miralax*) 17 gm PO DAILY PRN PRN Reason: CONSTIPATION Prochlorperazine Edisylate (Compazine Inj*) 5 mg IV Q6H PRN PRN Reason: NAUSEA/VOMITING Vital Signs - 8 hr 09/24/18 09/24/18 15:30 16:00 Temperature 99.9 F Pulse Rate 114 Respiratory 20 Rate Blood Pressure 137/55 (mmHg) O2 Sat by Pulse 96 96 Oximetry Oxygen Devices in Use Now: Nasal Cannula - 1 L Appearance: well appearing, conversant Ears/Nose/Mouth/Throat: Mucous Membranes Moist Respiratory: Clear to Auscultation Cardiovascular: RRR Abdominal: - - mild ttp diffusely without guarding, port sites c/d/i Extremities: No Edema Result Diagrams: 09/24/18 06:30 09/24/18 06:30 Additional Lab and Data: Microbiology 09/23/18 06:20 Misc Fluid (See Comment) - Other Body Fluid Culture - Preliminary Klebsiella Pneumoniae Enterococcus Faecalis 09/23/18 06:20 Body Fluid - Other Anaerobic Culture - Preliminary Bacteroides Vulgatus 09/23/18 02:44 Blood Venous Aerobic Blood Culture - Final Not Reportable 09/23/18 02:44 Blood Venous Anaerobic Blood Culture - Final Not Reportable 09/23/18 02:44 Blood Venous Blood Culture - Preliminary No Growth Day 1 09/22/18 23:57 Blood Venous Aerobic Blood Culture - Preliminary No Growth Day 1 09/22/18 23:57 Blood Venous Anaerobic Blood Culture - Final Not Reportable 09/22/18 23:51 Blood Venous Aerobic Blood Culture - Preliminary No Growth Day 1 09/22/18 23:51 Blood Venous Anaerobic Blood Culture - Preliminary No Growth Day 1 Assess/Plan/Problems-Billing 88W with HTN, hypothyroid, anxiety, who presented with acute abdominal pain and septic shock, with CT concerning for appendicitis, taken to OR and found to have perforated appendix, now s/p appendectomy 09/24 on IV abx with improvement in clinical status. - Patient Problems (1) Appendicitis with perforation Comment: found with perforated appendicitis on ex lap, now s/p appy on 09/23. - continue cefepime and Flagyl pending cultures - advance diet as tolerated (2) Hypertension Comment: holding home irbesartan 150mg in setting of septic shock - monitor BP closely and restart when indicated (3) Hypothyroid Comment: - cont home levothyroxine 50mcg daily (4) Anxiety Comment: - cont home diazepam 5mg bid prn (5) DVT prophylaxis Comment: SCDs while post-op. OOB and work with PT. Pending surgery clearance for subq heparin. Status and Disposition: Inpatient medical floors post-op.
[2018-09-24] MEDS: Cefepime 1 GM in Dextrose(*) 1 GM/50 ML BAG IV SCH (22:56)
[2018-09-25] MEDS: metroNIDAZOLE IV 500 MG/100ML* 500 MG/100 ML BAG IVPB SCH ×2 (04:32→21:41)
[2018-09-25] MEDS: Levothyroxine TAB* 50 MCG TAB PO SCH (05:34)
[2018-09-25 06:41] LABS: Hematocrit 33 % (33-41); Hemoglobin 10.9 g/dL (12.0-16.0); Mean Corpuscular HGB Conc 33 g/dL (31-36); Mean Corpuscular Hemoglobin 31 pg (27-31); Mean Corpuscular Volume 95 fL (80-97); Mean Platelet Volume 9.1 fL (7.4-10.4); Platelet Count 198 10^3/uL (150-450); Red Cell Distribution Width 14 % (10.5-15); White Blood Count 13.1 10^3/uL (3.5-10.8)
[2018-09-25 07:03] LABS: Anion Gap 7 mmol/L (2-11); BUN/Creatinine Ratio 17.9 (8-20); Blood Urea Nitrogen 25 mg/dL (6-24); CO2 Carbon Dioxide 26 mmol/L (22-32); Calcium 8.4 mg/dL (8.6-10.3); Chloride 102 mmol/L (101-111); EGFR African American 42.9 (>60); EGFR Non-African American 35.5 (>60); Glucose 112 mg/dL (70-100); Potassium 4.5 mmol/L (3.5-5.0); Sodium 135 mmol/L (135-145)
--- NOTE | 2018-09-25 08:15 | PN ---
Progress Note - Progress Note Date of Service: 09/25/18 Note: POD#2 s/p perf appx Tm 100.5 Tachypneic and tachycardic Cynthia some po's, appetite poor No N/V Voiding No pain issues Abd obese, soft, mildly tender, no peritonitis, incis OK D/W hospitalist svc--they will arrange CXR, EKG Await sensitivities, poss change abx Too soon to consider scan for abd abscess
[2018-09-25] MEDS: Metoprolol Tartrate IV* 1 MG/ML 5 ML VIAL IV PRN ×2 (08:16→09:36)
[2018-09-25] MEDS: Atorvastatin* 10 MG TAB PO SCH (09:37)
[2018-09-25] MEDS ORDERED: Diltiazem IV* 5 MG/ML 5 ML VIAL (for loading dose/IV Push) (25 MG) IV SLOW PU ONE (10:03)
[2018-09-25] MEDS ORDERED: NS 0.9% 1000 ML** 1,000 ML IV ONE (10:09)
[2018-09-25] MEDS ORDERED: Diltiazem IV VIAL* 125 MG in NS 0.9% 100 ML* 100 ML IV SCH (11:00)
[2018-09-25] MEDS ORDERED: Diltiazem IV VIAL* 125 MG in NS 0.9% 100 ML* 100 ML IVPB ONE (12:08)
[2018-09-25 12:43] LABS: Troponin I 0.33 ng/mL (<0.04)
--- NOTE | 2018-09-25 12:48 | CONS ---
CONSULTATION REPORT: DATE OF CONSULT: 09/25/18 REQUESTING PHYSICIAN: Dr. Sheth. CONSULTING SERVICE: Infectious Disease. REASON FOR CONSULTATION: Fever. IMPRESSION: 1. Fever after laparoscopic appendectomy for perforated appendicitis. Blood cultures grew Klebsiella and Enterococcus faecalis as well as Bacteroides. She is on cefepime, Flagyl. She had a fever overnight to 38.1. Today, she has an atrial flutter with tachycardia. She has no dysuria or urinary frequency. She has no cough or dyspnea. Chest x-ray done today, which is the PA and lateral, shows no infiltrate. She could have some atelectasis. She does not have signs or symptoms or peritonitis on exam. She does have increased tenderness and maybe some slight erythema around the left port site. 2. Penicillin allergy. She had a rash as child when she took it when she had the flu. 3. Hypertension. RECOMMENDATION: We will continue her current antibiosis. Follow her abdominal and skin exam at the port site. She will use her Incentive spirometer. HISTORY OF PRESENT ILLNESS: This is an 88-year-old woman, who had a few days of vague abdominal pain that came more right-sided and then the right lower quadrant. She came to the hospital on 09/22/18. White count was 17,000. CT showed dilated appendix, no inflammatory change. Dr. Rizo took her to the OR , found some thin cloudy drainage in the pelvis and purulent exudate and perforated appendicitis, which he removed with the laparoscope and she tolerated well. Last night, she had a temp of 38.1. She has had a little bit of tachycardia since then. She has no chest pain or dyspnea. She was found to be in atrial flutter. Her white count is down to 13,000 today with 14.8 thousand yesterday. Chest x-ray was negative. She had no frequency or dysuria. A UA done on 09/23/18 was negative. No fever today. PAST MEDICAL HISTORY: 1. Status post laparoscopic sigmoidectomy for adenomatous polyp. 2. Hypertension. 3. Hyperlipidemia. 4. Anxiety. 5. Hypothyroidism. 6. Status post tubal ligation. 7. Right ankle and left wrist fracture. MEDICATIONS: 1. Lipitor. 2. Cefepime 1 g every 12 hours. 3. Diltiazem infusion. 4. Flagyl 500 mg every 8 hours. 5. Polyethylene glycol as needed. ALLERGIES: PENICILLIN, SULFA, AND SHELLFISH. FAMILY HISTORY: Mother had appendicitis and rectal cancer. SOCIAL HISTORY: Past smoker. No alcohol use. REVIEW OF SYSTEMS: All negative except as noted above to 14-point review. PHYSICAL EXAM: Vital Signs: Temperature is 37, heart rate 110, respiratory rate 20, blood pressure 120/54, oxygen saturation 92% on 2 L. In general, she is awake, not in distress. She is oriented x2. Follows all commands. Moves all her extremities. HEENT: There is no conjunctival hemorrhage. Oropharynx without lesions. Neck is supple without mass. Heart is regular and tachycardic without murmurs. Lungs are clear to auscultation bilaterally. Abdomen: Soft, slightly distended. There is no rebound or pain with moving around in bed. Midline port is benign and nontender. The left port is slightly tender with just the slightest hint of erythema around that. No crepitus or fluctuance. Musculoskeletal: No joint synovitis or spine tenderness. DIAGNOSTIC STUDIES/LAB DATA: White blood cell count 13, hemoglobin 10, platelets 198, creatinine 1.4. TSH 1.3. Please see impressions and recommendations outlined above, which I discussed with Dr. Sheth. Thank you for asking me to see Ms. Calderon in consultation. [id number]/[facility] #: [id number] DAVID
[2018-09-25] MEDS ORDERED: Amiodarone 360 MG IVPREMIX* 360 MG/200 ML BAG IV ONE (13:45)
--- NOTE | 2018-09-25 14:11 | CONS ---
CC: Arash Conti MD; Dr. Ragland CARDIOLOGY CONSULTATION: DATE OF CONSULT: 09/25/18 REASON FOR EVALUATION: AFib. HISTORY OF PRESENT ILLNESS: This is a very pleasant 88-year-old woman has a history of hypertension and remote history of tobacco use, who was in her usual state of health until 09/22/18. She had developed some epigastric inframammary pain, which she said felt like an irritated skin and then it gradually migrated to her umbilical area and to her right lower quadrant. Because of the symptoms , she came to emergency room. She was found to have appendicitis and underwent surgery on 09/23/18. She had a laparoscopic appendectomy. There was cloudy drainage in the pelvis and purulent exudate. Appendix was visualized and appeared to have a perforation in the midportion of the appendix. She has been treated with antibiotics and this morning was noted to have a rapid heart rate symptomatic. She was transferred to telemetry and her EKG from 7:59 revealed what appeared to be atypical flutter, SVT approximately 160 with possible old inferior ID and poor R- wave progression and lateral ST depression. Her previous EKG from 09/22/18 revealed sinus rhythm with first-degree AV block, old inferior ID, poor R-wave progression, and the inferior Q waves have been new compared to April 2011. She was treated with IV metoprolol and then diltiazem 50 mg was slowing of her heart rate to the 40s. She continues to be asymptomatic, but does complain of mild shortness of breath, which she said she had when she got here and today her EKG appears to be A-flutter and fib waves with poor R-wave progression and an old inferior ID and a slower heart rate of 133. She denies any chest pain, palpitation, syncope, or near syncope, previous arrhythmias, coronary disease. She lives on her own, was last year. She says that she drives and is able to walk to her car, drive to the supermarket, and walk around the supermarket, pushing a cart. She said she did fall 2 years ago when she misplaced her footing on a sitar well without a handrail. She has been more careful since then. She denies orthopnea, peripheral edema. She said she does not walk longer distance because of back discomfort. She has a history of hypertension; history of tobacco use, discontinued 10 years ago; history of hyperlipidemia, on therapy. PAST MEDICAL HISTORY: Hypothyroidism, anxiety, hyperlipidemia. PAST SURGICAL HISTORY: Includes the appendectomy on 09/23/18 as well as a colectomy for an invasive polyp from what sounds like an invasive polyp 7 years ago. She has a history of right ankle and left wrist fractures, laparoscopic tubal ligation, laparoscopic sigmoid resection secondary to a sigmoid polyp with adenomatous polyp, no high-grade dysplasia or malignancy. MEDICATIONS: As an outpatient include: 1. Atorvastatin 10 mg a day. 2. Diazepam 5 mg b.i.d. as needed. 3. Irbesartan 150 mg a day. 4. Levothyroxine 50 mcg a day. 5. Milk of magnesia p.o. 15 cc p.r.n. As an inpatient her medications include: 1. Atorvastatin 10 mg. 2. Cefepime 1 g q.d. 3. Diltiazem dose has been held. 4. Flagyl 500 mg q.12. 5. Synthroid 50 mcg a day. 6. Oxycodone 5/325 one tab q.6 p.r.n. 7. MiraLAX 17 g p.o. p.r.n. 8. Compazine 5 mg IV q.6 p.r.n. 9. Her losartan has been held. 10. She got metoprolol 5 mg IV once. ALLERGIES: She has allergy to SHELLFISH, IODINE, SULFA. FAMILY HISTORY: Her mother had perforated appendicitis and also rectal cancer. She says her mother and father lived to their 80s. Did not have coronary disease. She had a brother and 2 sisters who are , but had no coronary disease and lived into their 70s and 80s. She had 4 maternal aunts, who had coronary disease in their 70s and 80s. SOCIAL HISTORY: She is a retired beautician. She was a smoker until 2010. She denies alcohol use. She just drinks half a cup of coffee a day. REVIEW OF SYSTEMS: Review of systems x10 was negative except as above. She denies diarrhea, hematuria, renal disease, neurologic disorder. 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 PHYSICAL EXAMINATION: On physical exam, she is a well-developed obese female, in no apparent distress. Heart rate is 95, blood pressure was 113/49, her heart rate was lower this morning, during exam was 49, right after the diltiazem infusion. Atraumatic, normocephalic. Extraocular muscles are intact. Sclerae anicteric. JVD of approximately 8 cm. Carotids are 2+, without bruits. No cervical adenopathy or thyromegaly. Cardiac Exam: S1 and S2. No murmurs, gallops, or rubs. Chest was clear. No CVAT. Abdominal Exam: Bowel sounds present, nontender. There are bandages over her laparoscopic entry sites of her abdomen. Femoral pulses intact without bruits. Distal pulses intact, no edema. Negative Homans sign. Motor strength 5/5 bilaterally. Deep tendon reflexes 2/4. Alert and oriented. She knows the year, the month, but not sure of the date. Knows where she is. DIAGNOSTIC STUDIES/LAB DATA: Her labs include white count of 13 down from 17.2 on the . Hemoglobin at 10.9, hematocrit at 33, platelet count of 198. Sodium 135, potassium 4.5, BUN of 25, creatinine of 1.4, glucose 112. Her lactic acid was 3.4 on the that was 1.2 yesterday and 1 this morning, calcium 8.4, TSH of 1.3. Her troponin from 09/22/18 was 0.01 and repeat was 0.01 later that evening. Chest x-ray from today revealed no active cardiopulmonary disease. There was hyperinflated lung szymanski and similar to 09/22/18. The EKGs were described above. IMPRESSION: My impression is that Ms. Calderon appears to have asymptomatic paroxysmal atrial flutter in the setting of recent laparoscopic surgery for perforated appendix. I did discuss with the patient diagnosis and need to control her heart rate without excessive bradycardia or tachycardia as well as consideration of anticoagulation given her CHADS-VASc2 score of 3 when it is safe to do so from a surgical standpoint. For the time being I recommend the followin. We will gently restart her diltiazem as tolerated for rate control and watching her blood pressure and volume status. 2. Would continue antibiotics as you are doing. If she develops sepsis, she may or may not tolerate rate control with diltiazem or beta-blockers. 3. We will consider possibility of using digoxin cautiously if her blood pressure will allow. Given her advanced age and significant bradycardia after diltiazem 50 mg, we will have to use very low doses of rate control agents. 4. Would consider anticoagulation when it is safe to do so from a surgical standpoint. 5. Would recommend an echocardiogram to evaluate LV function, valvular function. 6. We will consider repeating her troponins given her recent tachycardia. 7. We will try to maintain a potassium over 4. [id number][place] [place] [id number] addendum: Pt converted to nsr with 1 avb shortly after the above evaluation. Her troponin was mildly elevated; possible demand ischemia due to tachycardia. Plan: start amiodarone to try to maintain nsr. follow her troponins and ekgs. consider pharmacologic stress once recovered. trial of low dose beta elder if hr /bp will allow. D/w Jung Sheth hospitalist. SAVI 09.25.18 2;50 pm MTDD
[2018-09-25] MEDS ORDERED: Perflutren Lipid Microsphere* 3 ML VIAL ONE (14:13)
[2018-09-25] MEDS: Amiodarone TAB* 400 MG PO SCH ×2 (14:37→21:34)
--- NOTE | 2018-09-25 15:27 | PN ---
Subjective Interval History: Pt with recurrence of fever Tmax 100.5 overnight with mild confusion. By morning , she was noted to have tachycardia and increased work of breathing. Tele/EKG concerning for afib w RVR and eventually flutter, not responsive to metoprolol IV x 2. CXR was clear so she was given 1 L IVF. Then given dilt IV push in preparation for drip, but then noted to be in normal sinus bradycardia and without symptoms. UA and lactate normal. Eval by surgery and thought not to have concerning abdominal findings for leak. ID evaluated patient given persistent fevers > 48 hours after surgery and PNC allergy. Will continue current abx for now pending sensitivities. Objective Active Medications: Amiodarone HCl (Cordarone Tab*) 200 mg PO DAILY [facility] Amiodarone HCl (Cordarone Tab*) 400 mg PO BID [facility] Stop: 09/25/18 21:01 Last Admin: 09/25/18 14:37 Dose: 400 mg Atorvastatin Calcium (Lipitor*) 10 mg PO DAILY [facility] Last Admin: 09/25/18 09:37 Dose: 10 mg Cefepime HCl (Maxipime 1 Gm In Dextrose Duplex (*)) 1 gm in 50 mls @ 100 mls/ hr IV 2100 [facility] Metronidazole/Sodium Chloride (Flagyl 500 Mg Ivpb*) 500 mg in 100 mls @ 100 mls /hr IVPB Q12HR [facility] Levothyroxine Sodium (Synthroid Tab*) 50 mcg PO DAILY@0600 [facility] Last Admin: 09/25/18 05:34 Dose: 50 mcg Oxycodone/Acetaminophen (Percocet 5/325 Tab*) 1 tab PO Q6H PRN PRN Reason: PAIN Last Admin: 09/24/18 09:01 Dose: 1 tab Polyethylene Glycol/Electrolytes (Miralax*) 17 gm PO DAILY PRN PRN Reason: CONSTIPATION Prochlorperazine Edisylate (Compazine Inj*) 5 mg IV Q6H PRN PRN Reason: NAUSEA/VOMITING Vital Signs - 8 hr 09/25/18 09/25/18 09/25/18 07:39 08:00 08:24 Temperature 98.4 F Pulse Rate 157 153 Respiratory 28 24 24 Rate Blood Pressure 122/57 131/91 (mmHg) O2 Sat by Pulse 92 92 Oximetry 09/25/18 09/25/18 09/25/18 08:36 09:46 10:36 Temperature 97.7 F Pulse Rate 122 96 86 Respiratory 26 26 26 Rate Blood Pressure 116/60 106/50 113/47 (mmHg) O2 Sat by Pulse 96 97 Oximetry 09/25/18 09/25/18 10:45 12:33 Temperature 97.7 F 98.0 F Pulse Rate 86 98 Respiratory 26 16 Rate Blood Pressure 113/47 111/47 (mmHg) O2 Sat by Pulse 97 Oximetry Oxygen Devices in Use Now: Nasal Cannula Appearance: not in acute distress, without increased work of breathing, non toxic, speaking in full sentences, conversant Ears/Nose/Mouth/Throat: Mucous Membranes Moist Neck: NL Appearance and Movements; NL JVP, - Respiratory: Clear to Auscultation Cardiovascular: - - bradycardic, regular, no mgr Abdominal: - - soft, nontender, L port site with surrounding mild erythema Extremities: No Edema Result Diagrams: 09/25/18 06:23 09/25/18 06:23 Additional Lab and Data: Microbiology 09/23/18 06:20 Misc Fluid (See Comment) - Other Gram Stain - Final 09/23/18 06:20 Misc Fluid (See Comment) - Other Body Fluid Culture - Preliminary Klebsiella Pneumoniae Enterococcus Faecalis Xin Albicans 09/23/18 06:20 Body Fluid - Other Anaerobic Culture - Preliminary Bacteroides Vulgatus 09/23/18 02:44 Blood Venous Aerobic Blood Culture - Final Not Reportable 09/23/18 02:44 Blood Venous Anaerobic Blood Culture - Final Not Reportable 09/23/18 02:44 Blood Venous Blood Culture - Preliminary No Growth Day 2 09/22/18 23:57 Blood Venous Aerobic Blood Culture - Preliminary No Growth Day 2 09/22/18 23:57 Blood Venous Anaerobic Blood Culture - Final Not Reportable 09/22/18 23:51 Blood Venous Aerobic Blood Culture - Preliminary No Growth Day 2 09/22/18 23:51 Blood Venous Anaerobic Blood Culture - Preliminary No Growth Day 2 09/22/18 19:40 Urine Urine Culture - Final Assess/Plan/Problems-Billing 88W with HTN, hypothyroid, anxiety, who presented with acute abdominal pain and septic shock, with CT concerning for appendicitis, taken to OR and found to have perforated appendix, now s/p appendectomy 09/24. Post op course c/b paroxysmal aflutter now on amiodarone. - Patient Problems (1) Appendicitis with perforation Comment: found with perforated appendicitis on ex lap, now s/p appy on 09/23. - continue cefepime and Flagyl pending cultures - appreciate surgery, ID recs - monitor abdominal exam - advance diet as tolerated (2) Supraventricular arrhythmia Comment: - now on amiodarone - appreciate cardiology following - Dr. Conti - anticoagulation indicated - pending clearance by surgery - will eventually need beta-elder - TTE, pharmacologic stress (3) Hypertension Comment: holding home irbesartan 150mg in setting of septic shock - monitor BP closely and restart when indicated (4) Hypothyroid Comment: TSH 1.3. Goal likely higher than that given age. Will defer to outpatient management given acutely sick, which may influence TSH levels. - cont home levothyroxine 50mcg daily (5) Anxiety Comment: - holding home diazepam 5mg bid prn given acute illness, monitor for withdrawal (6) DVT prophylaxis Comment: SCDs while post-op. OOB and work with PT. Pending surgery clearance for AC. Status and Disposition: Inpatient medical floors post-op.
--- NOTE | 2018-09-25 16:27 | ECHO ---
Patient: LUCY DEL CASTILLO [facility] Rec#: [id number] : 1930 Date: 09/25/2018 Age: 88y Height: 157 cm / 61.8 in Weight: 74.5 kg / 164.2 lbs Sex: F BSA: 1.75 Room#: [facility] Admit Date#: 09/22/2018 Type: Inpatient Referring: Arash Conti MD Reading: Arash Conti MD [employer] Supervisor: Shiloh Bethea BHUPINDER CC: Ender Ragland MD Transthoracic Echocardiogram Indication: SOB BP: 113/47 HR: 82 Rhythm: NSR Findings History: HTN,HLD,former smoker. Technical Comments: The study is technically limited due to the patient's smoking history. Definity used to enhance images. Completed at 1510. Left Ventricle: The left ventricular chamber size is decreased. There is increased basal septal hypertrophy noted without evidence of an increased gradient across the left ventricular outflow tract. There is normal left ventricular systolic function.There appeared to be subtle hypokinesis of the mid to distal anteroseptal segments in some views with hyperdynamic function elsewhere. The estimated ejection fraction is 60-65%. The assessment of diastolic function is non-diagnostic. Left Atrium: The left atrial chamber size is normal. Right Ventricle: The right ventricular cavity size is normal. The right ventricular global systolic function is normal. Right Atrium: The right atrial cavity size is normal. Aortic Valve: The aortic valve is trileaflet. The aortic valve leaflets are mildly thickened. There is no evidence of aortic regurgitation. There is no evidence of aortic stenosis. Mitral Valve: Mild mitral annular calcification present. The mitral valve leaflets are mildly thickened. There is no evidence of mitral regurgitation. There is no evidence of mitral stenosis. Tricuspid Valve: The tricuspid valve leaflets are normal. There is a physiologic tricuspid regurgitation. Unable to estimate the right ventricular systolic pressure. There is no tricuspid stenosis. Pulmonic Valve: There is no evidence of pulmonic regurgitation. There is no pulmonic stenosis. Pericardium: No pericardial fat pad is visualized. Aorta: There is no dilatation of the ascending aorta. There is no dilatation of the aortic arch. There is no dilation of the aortic root. Pulmonary Artery: The main pulmonary artery appears normal. Venous: The inferior vena cava appears normal in size. Contrast: Definity was used to optimize study. A Total of 3 ml used. Intravenous contrast was used to enhance endocardial border definition. Summary: There was not any prior study for comparison. Conclusions The aortic valve leaflets are mildly thickened. Mild mitral annular calcification present. The left ventricular chamber size is decreased. There is increased basal septal hypertrophy noted without evidence of an increased gradient across the left ventricular outflow tract. There is overall normal left ventricular systolic function. There appeared to be subtle hypokinesis of the mid to distal anteroseptal segments in some views with hyperdynamic function elsewhere. The estimated ejection fraction is 60-65%. Measurements Name Value Normal Range RVIDd (AP) 2D 3 cm (0.9 - 2.6) RVDdMajor (2D) 3.6 cm (2.2 - 4.4) RAd ISD 4CH 4.1 cm (3.4 - 4.9) RA (A4C)W 3 cm (2.9 - 4.6) IVSd (2D) 1.3 cm (0.6 - 1) LVPWd (2D) 0.8 cm (0.6 - 1) LVIDd (2D) 3.1 cm (3.6 - 5.4) LVIDs (2D) 1.6 cm - LV FS (2D) 48 % (25 - 45) Aortic Annulus 1.9 cm (1.4 - 2.6) Ao root diameter (2D) 2.8 cm (2.1 - 3.5) Ascending Ao 2.8 cm (2.1 - 3.4) Aortic arch 2.5 cm (1.8 - 3.4) Descending Ao 0.7 cm - LA dimension (AP) 2D 3.5 cm (2.3 - 3.8) LAd ISD 4CH 5.7 cm (2.9 - 5.3) LA ISD 4CH W 3.7 cm (2.5 - 4.5) Name Value Normal Range LA ESV SP 4CH (A/L) 27 ml - LA ESV SP 2CH (A/L) 30 ml - LA ESV BP (A/L) index 28 ml/m2 - Name Value Normal Range MV E-wave Vmax 1.3 m/sec - MV deceleration time 198 msec - MV A-wave Vmax 0.8 m/sec - MV E:A ratio 1.8 ratio - LV septal e' Vmax 0.08 m/sec - LV lateral e' Vmax 0.09 m/sec - LV E:e' septal ratio 16.25 ratio - LV E:e' lateral ratio 14.44 ratio - Name Value Normal Range AV Vmax 1.6 m/sec - AV VTI 29.2 cm - AV peak gradient 10 mmHg - AV mean gradient 5 mmHg - LVOT diameter 2 cm - LVOT Vmax 1.2 m/sec - LVOT VTI 25.3 cm - LVOT peak gradient 6 mmHg - LVOT mean gradient 3 mmHg - Name Value Normal Range MV Vmax 1.4 m/sec - MV VTI 31.8 cm - MV peak gradient 8 mmHg - MV mean gradient 2 mmHg - MV PHT 52 msec - MVA (PHT) 4.2 cm2 - MVA (continuity VTI) 2.5 cm2 - Name Value Normal Range IVC diameter 1.8 cm - Name Value Normal Range PV Vmax 0.6 m/sec - PV peak gradient 1 mmHg -
[2018-09-25] MEDS ORDERED: Cefepime 1 GM in Dextrose(*) 1 GM/50 ML BAG IV SCH (21:00)
[2018-09-26 04:23] LABS: Urine Appearance Cloudy; Urine Bacteria Absent (Absent); Urine Bilirubin Negative (Negative); Urine Blood 1+ (Negative); Urine Color Yellow; Urine Glucose Negative (Negative); Urine Ketones Trace (Negative); Urine Nitrite Negative (Negative); Urine Protein Negative (Negative); Urine Red Blood Cell Absent (Absent); Urine Specific Gravity 1.018 (1.010-1.030); Urine Urobilinogen Negative (Negative); Urine White Blood Cell 1+(6-10/hpf) (Absent)
[2018-09-26] MEDS: Levothyroxine TAB* 50 MCG TAB PO SCH (05:52)
[2018-09-26 06:26] LABS: Hematocrit 31 % (33-41); Hemoglobin 10.1 g/dL (12.0-16.0); Mean Corpuscular HGB Conc 33 g/dL (31-36); Mean Corpuscular Hemoglobin 31 pg (27-31); Mean Corpuscular Volume 96 fL (80-97); Mean Platelet Volume 9.1 fL (7.4-10.4); Platelet Count 200 10^3/uL (150-450); Red Blood Count 3.25 10^6 /uL (3.70-4.87); Red Cell Distribution Width 14 % (10.5-15); White Blood Count 11.9 10^3/uL (3.5-10.8)
[2018-09-26 06:45] LABS: Anion Gap 6 mmol/L (2-11); BUN/Creatinine Ratio 19.7 (8-20); Blood Urea Nitrogen 29 mg/dL (6-24); CO2 Carbon Dioxide 26 mmol/L (22-32); Calcium 8.3 mg/dL (8.6-10.3); Chloride 106 mmol/L (101-111); EGFR African American 40.6 (>60); EGFR Non-African American 33.5 (>60); Glucose 97 mg/dL (70-100); Magnesium 2.2 mg/dL (1.9-2.7); Potassium 4.6 mmol/L (3.5-5.0); Sodium 138 mmol/L (135-145)
[2018-09-26 06:48] LABS: Troponin I 0.82 ng/mL (<0.04)
[2018-09-26] MEDS: metroNIDAZOLE IV 500 MG/100ML* 500 MG/100 ML BAG IVPB SCH (09:00)
[2018-09-26] MEDS: Amiodarone TAB* 200 MG PO SCH (09:00)
[2018-09-26] MEDS: Atorvastatin* 10 MG TAB PO SCH (09:00)
--- NOTE | 2018-09-26 09:30 | PN ---
Progress Note - Progress Note Date of Service: 09/26/18 Note: POD#3 perf appx T99, VS noted Stella liqs, no N/V Not much appetite Voiding, passing stool pain control good Abd soft, minimally tender, no incis infection Sill sounds wheezy Cont abx cardiac care per hospitalist po's as stella.
[2018-09-26] MEDS ORDERED: Zosyn per Pharmacy* NOTE FOLLOW UP SCH (10:00)
[2018-09-26] MEDS ORDERED: ZOSYN 3.375 GM x ONE DOSE over 30 miuntes IVPB ×2 (10:00)
--- NOTE | 2018-09-26 10:44 | PN ---
Progress Note - Progress Note Date of Service: 09/26/18 SOAP: Subjective: CC: appendicitis HPI: 88 year old woman with perforated appendicitis s/p appendectomy. Had a fever 2 nights ago, none last night. Denies abdominal pain or fever, no nausea. Had a rash when she was a child and took pcn for the flu. Objective: Vital Signs Temp 37.4 C 09/26/18 08:28 Pulse 101 09/26/18 08:28 Resp 22 09/26/18 08:28 BP 143/53 09/26/18 08:28 Pulse Ox 94 09/26/18 08:28 Intake & Output 09/25/18 09/26/18 09/26/18 18:59 06:59 18:59 Intake Total 0 190 Balance 0 190 Intake: IV Fluids 40 NS & abx 40 IVPB 150 ABX - CEFEPIME 50 ABX - FLAGYL 100 Oral 0 0 Other: Estimated Void Small # Bowel Movements 2 Estimated Stool Amount Small # Voids 1 Gen:awake, no distress, mildly flushed HEENT: no thrush Heart:RRR no murmur Lungs:CTA BL Abd:+BS mildly distended, soft, no rebound , port sites no erythema Skin: no rash Laboratory Results - last 24 hr 09/25/18 09/25/18 09/25/18 06:23 06:23 06:23 WBC RBC Hgb Hct MCV MCH MCHC RDW Plt Count MPV Sodium 135 Potassium 4.5 Chloride 102 Carbon Dioxide 26 Anion Gap 7 BUN 25 H Creatinine 1.40 H Est GFR ( Amer) 42.9 Est GFR (Non-Af Amer) 35.5 BUN/Creatinine Ratio 17.9 Glucose 112 H Calcium 8.4 L Magnesium Troponin I 0.33 H* Cancelled B-Natriuretic Peptide 641 H TSH 1.30 Urine Color Urine Appearance Urine pH Ur Specific [place] Urine Protein Urine Ketones Urine Blood Urine Nitrate Urine Bilirubin Urine Urobilinogen Ur Leukocyte Esterase Urine WBC (Auto) Urine RBC (Auto) Urine Bacteria Hyaline Casts Urine Glucose 09/26/18 09/26/18 09/26/18 04:00 06:04 06:04 WBC 11.9 H RBC 3.25 L Hgb 10.1 L Hct 31 L MCV 96 MCH 31 MCHC 33 RDW 14 Plt Count 200 MPV 9.1 Sodium 138 Potassium 4.6 Chloride 106 Carbon Dioxide 26 Anion Gap 6 BUN 29 H Creatinine 1.47 H Est GFR ( Amer) 40.6 Est GFR (Non-Af Amer) 33.5 BUN/Creatinine Ratio 19.7 Glucose 97 Calcium 8.3 L Magnesium 2.2 Troponin I 0.82 H* B-Natriuretic Peptide TSH Urine Color Yellow Urine Appearance Cloudy Urine pH 5.0 Ur Specific [place] 1.018 Urine Protein Negative Urine Ketones Trace A Urine Blood 1+ A Urine Nitrate Negative Urine Bilirubin Negative Urine Urobilinogen Negative Ur Leukocyte Esterase Trace A Urine WBC (Auto) 1+(6-10/hpf) A Urine RBC (Auto) Absent Urine Bacteria Absent Hyaline Casts Present A Urine Glucose Negative Microbiology 09/25/18 09:41 Aerobic Blood Culture - Preliminary Blood Venous No Growth Day 1 Anaerobic Blood Culture - Preliminary No Growth Day 1 09/25/18 09:26 Aerobic Blood Culture - Preliminary Blood Venous No Growth Day 1 Anaerobic Blood Culture - Preliminary No Growth Day 1 09/23/18 06:20 Gram Stain - Final Misc Fluid (See Comment) - Other Body Fluid Culture - Preliminary Esbl Klebsiella Pneumoniae Enterococcus Faecalis Xin Albicans 09/23/18 06:20 Anaerobic Culture - Preliminary Body Fluid - Other Bacteroides Vulgatus 09/23/18 02:44 Aerobic Blood Culture - Final Blood Venous Not Reportable Anaerobic Blood Culture - Final Not Reportable Blood Culture - Preliminary No Growth Day 3 09/22/18 23:57 Aerobic Blood Culture - Preliminary Blood Venous No Growth Day 3 Anaerobic Blood Culture - Final Not Reportable 09/22/18 23:51 Aerobic Blood Culture - Preliminary Blood Venous No Growth Day 3 Anaerobic Blood Culture - Preliminary No Growth Day 3 Assessment: 1. Perforated appendicitis s/p laparoscopic appendectomy; appears mildly inflamed and the GNR that grew is R to cefepime 2. post op fever 3. Atrial flutter 4. PCN allergy; rash as a child, low risk to take PCN now Plan: 1. change cefepime/flagyl to zosyn 3.375 gm IV Q8hrs Discussed with Dr Sheth
--- NOTE | 2018-09-26 14:00 | PN ---
Subjective Interval History: Cleared by gen surg for AC given afib. Kleb R to cefepime so switched to Zosyn by ID. Pt reports feeling closer to her baseline this morning. Tolerating liquid diet well. Objective Active Medications: Amiodarone HCl (Cordarone Tab*) 200 mg PO DAILY [facility] Last Admin: 09/26/18 09:00 Dose: 200 mg Atorvastatin Calcium (Lipitor*) 10 mg PO DAILY [facility] Last Admin: 09/26/18 09:00 Dose: 10 mg Piperacillin Sod/Tazobactam (Sod 3.375 gm/ Sodium Chloride) 100 mls @ 25 mls/ hr IVPB Q8H [facility] Levothyroxine Sodium (Synthroid Tab*) 50 mcg PO DAILY@0600 [facility] Last Admin: 09/26/18 05:52 Dose: 50 mcg Oxycodone/Acetaminophen (Percocet 5/325 Tab*) 1 tab PO Q6H PRN PRN Reason: PAIN Last Admin: 09/24/18 09:01 Dose: 1 tab Pharmacy Consult (Zosyn Per Pharmacy*) 1 note FOLLOW UP .ZOSYN PER PHARMACY [facility] Polyethylene Glycol/Electrolytes (Miralax*) 17 gm PO DAILY PRN PRN Reason: CONSTIPATION Prochlorperazine Edisylate (Compazine Inj*) 5 mg IV Q6H PRN PRN Reason: NAUSEA/VOMITING Vital Signs - 8 hr 09/26/18 09/26/18 09/26/18 06:09 06:12 08:00 Temperature 99.2 F 99.2 F Pulse Rate 108 108 Respiratory 24 24 16 Rate Blood Pressure 155/59 155/59 (mmHg) O2 Sat by Pulse 97 97 Oximetry 09/26/18 09/26/18 09/26/18 08:28 10:01 11:52 Temperature 99.3 F 99.2 F 98.2 F Pulse Rate 101 90 95 Respiratory 22 20 18 Rate Blood Pressure 143/53 115/41 146/54 (mmHg) O2 Sat by Pulse 94 95 Oximetry Oxygen Devices in Use Now: Nasal Cannula Appearance: comfortably lying flat on side Respiratory: Clear to Auscultation Cardiovascular: RRR Abdominal: - - soft, nontender, port site c/d/i Extremities: No Edema Result Diagrams: 09/26/18 06:04 09/26/18 06:04 Additional Lab and Data: Microbiology 09/23/18 06:20 Misc Fluid (See Comment) - Other Gram Stain - Final 09/23/18 06:20 Misc Fluid (See Comment) - Other Body Fluid Culture - Preliminary Klebsiella Pneumoniae Enterococcus Faecalis Xin Albicans 09/23/18 06:20 Body Fluid - Other Anaerobic Culture - Preliminary Bacteroides Vulgatus 09/23/18 02:44 Blood Venous Aerobic Blood Culture - Final Not Reportable 09/23/18 02:44 Blood Venous Anaerobic Blood Culture - Final Not Reportable 09/23/18 02:44 Blood Venous Blood Culture - Preliminary No Growth Day 2 09/22/18 23:57 Blood Venous Aerobic Blood Culture - Preliminary No Growth Day 2 09/22/18 23:57 Blood Venous Anaerobic Blood Culture - Final Not Reportable 09/22/18 23:51 Blood Venous Aerobic Blood Culture - Preliminary No Growth Day 2 09/22/18 23:51 Blood Venous Anaerobic Blood Culture - Preliminary No Growth Day 2 09/22/18 19:40 Urine Urine Culture - Final Assess/Plan/Problems-Billing 88W with HTN, hypothyroid, anxiety, who presented with acute abdominal pain and septic shock, with CT concerning for appendicitis, taken to OR and found to have perforated appendix, now s/p appendectomy 09/24. Post op course c/b paroxysmal aflutter now on amiodarone. - Patient Problems (1) Appendicitis with perforation Comment: found with perforated appendicitis on ex lap, now s/p appy on 09/23. - cefepime (09/23 - 09/25) switched to Zosyn (09/26 - ) given resistent Klebs - cont Flagyl (09/23 - ) - appreciate surgery, ID recs - monitor abdominal exam - advance diet as tolerated (2) Supraventricular arrhythmia Comment: Afib in setting of post-op and fevers. - cont amiodarone - starting metoprolol 12.5 q12h today - appreciate cardiology following - Dr. Conti - cleared by surgery for AC - likely apixaban - will need pharmacologic stress (3) Hypertension Comment: holding home irbesartan 150mg in setting of septic shock - monitor BP closely and restart when indicated (4) Hypothyroid Comment: TSH 1.3. Goal likely higher than that given age. Will defer to outpatient management given acutely sick, which may influence TSH levels. - cont home levothyroxine 50mcg daily (5) Anxiety Comment: - holding home diazepam 5mg bid prn given acute illness, monitor for withdrawal (6) DVT prophylaxis Comment: - on therapeutic AC Status and Disposition: Inpatient medical floors post-op.
[2018-09-26] MEDS: Piperacillin/Tazobac ADVAN(*) 3.375 GM in NS 0.9% 100 ML* 100 ML IVPB SCH ×2 (15:16→23:33)
[2018-09-26] MEDS ORDERED: Metoprolol Tartrate TAB* 25 MG PO SCH (19:00)
[2018-09-27] MEDS: Apixaban* 5 MG TAB PO SCH ×3 (01:00→20:13)
[2018-09-27] MEDS ORDERED: Albuterol 2.5 MG/3 ML NEB.SOL* (0.083%) INH ONE (04:46)
[2018-09-27] MEDS: Albuterol 2.5 MG/3 ML NEB.SOL* (0.083%) INH PRN ×2 (04:48→20:29)
[2018-09-27] MEDS: Levothyroxine TAB* 50 MCG TAB PO SCH (05:44)
[2018-09-27 06:58] LABS: Hematocrit 32 % (33-41); Hemoglobin 10.4 g/dL (12.0-16.0); Mean Corpuscular HGB Conc 33 g/dL (31-36); Mean Corpuscular Hemoglobin 32 pg (27-31); Mean Corpuscular Volume 96 fL (80-97); Mean Platelet Volume 9.1 fL (7.4-10.4); Platelet Count 202 10^3/uL (150-450); Red Blood Count 3.31 10^6 /uL (3.70-4.87); Red Cell Distribution Width 14 % (10.5-15); White Blood Count 9.2 10^3/uL (3.5-10.8)
[2018-09-27] MEDS: Piperacillin/Tazobac ADVAN(*) 3.375 GM in NS 0.9% 100 ML* 100 ML IVPB SCH (07:16)
[2018-09-27 07:18] LABS: Anion Gap 7 mmol/L (2-11); BUN/Creatinine Ratio 19.5 (8-20); Blood Urea Nitrogen 25 mg/dL (6-24); CO2 Carbon Dioxide 24 mmol/L (22-32); Calcium 8.2 mg/dL (8.6-10.3); Chloride 108 mmol/L (101-111); EGFR African American 47.6 (>60); EGFR Non-African American 39.4 (>60); Glucose 94 mg/dL (70-100); Magnesium 2.2 mg/dL (1.9-2.7); Potassium 4.4 mmol/L (3.5-5.0); Sodium 139 mmol/L (135-145)
--- NOTE | 2018-09-27 08:23 | PN ---
Progress Note - Progress Note Date of Service: 09/27/18 Note: POD#4 s/p perf appx Afeb, VS noted Stella po's tho' appetite poor voiding, passing stool Denies pain Breathing unlabored, tho' c/o dyspnea abd soft, non-tender, incis clean, no infection Cont abx per ID PO's as stella Resp/card care per hospitalist D/W Jung Sheth
[2018-09-27] MEDS ORDERED: Metoprolol Tartrate IV* 1 MG/ML 5 ML VIAL IV PRN (08:31)
[2018-09-27] MEDS: Amiodarone TAB* 200 MG PO SCH (08:46)
[2018-09-27] MEDS: Metoprolol Tartrate TAB* 25 MG PO SCH (08:46)
[2018-09-27] MEDS: Atorvastatin* 10 MG TAB PO SCH (08:46)
--- NOTE | 2018-09-27 15:27 | PN ---
Progress Note - Progress Note Date of Service: 09/27/18 SOAP: Subjective: CC: appendicitis HPI: 88 year old woman with perforated appendicitis s/p appendectomy. No return of fever; no abd pain. Eating more and moved bowels today. No rash. Objective: Vital Signs Temp 36.5 C 09/27/18 11:48 Pulse 76 09/27/18 11:48 Resp 20 09/27/18 11:48 BP 126/53 09/27/18 11:48 Pulse Ox 99 09/27/18 11:48 Intake & Output 09/26/18 09/27/18 09/27/18 18:59 06:59 18:59 Intake Total 680 325 925 Balance 680 325 925 Intake: IV Fluids 200 25 100 ABX - FLAGYL 100 NS & abx 25 Zosyn 100 100 IVPB 300 Zosyn 300 Oral 480 0 825 Gen:awake, no distress, mildly flushed HEENT: no thrush Heart:RRR no murmur Lungs:CTA BL Abd:+BS mildly distended, soft, no rebound , port sites no erythema Skin: no rash Laboratory Results - last 24 hr 09/27/18 09/27/18 06:31 06:31 WBC 9.2 RBC 3.31 L Hgb 10.4 L Hct 32 L MCV 96 MCH 32 H MCHC 33 RDW 14 Plt Count 202 MPV 9.1 Sodium 139 Potassium 4.4 Chloride 108 Carbon Dioxide 24 Anion Gap 7 BUN 25 H Creatinine 1.28 H Est GFR ( Amer) 47.6 Est GFR (Non-Af Amer) 39.4 BUN/Creatinine Ratio 19.5 Glucose 94 Calcium 8.2 L Magnesium 2.2 Troponin I 0.50 H* Microbiology 09/26/18 04:00 Urine Culture - Final Urine 09/25/18 09:41 Aerobic Blood Culture - Preliminary Blood Venous No Growth Day 2 Anaerobic Blood Culture - Preliminary No Growth Day 2 09/25/18 09:26 Aerobic Blood Culture - Preliminary Blood Venous No Growth Day 2 Anaerobic Blood Culture - Preliminary No Growth Day 2 09/23/18 06:20 Gram Stain - Final Misc Fluid (See Comment) - Other Body Fluid Culture - Final Esbl Klebsiella Pneumoniae Enterococcus Faecalis Xin Albicans 09/23/18 06:20 Anaerobic Culture - Final Body Fluid - Other Bacteroides Vulgatus Bacteroides Uniformis 09/23/18 02:44 Aerobic Blood Culture - Final Blood Venous Not Reportable Anaerobic Blood Culture - Final Not Reportable Blood Culture - Preliminary No Growth Day 4 09/22/18 23:57 Aerobic Blood Culture - Preliminary Blood Venous No Growth Day 4 Anaerobic Blood Culture - Final Not Reportable 09/22/18 23:51 Aerobic Blood Culture - Preliminary Blood Venous No Growth Day 4 Anaerobic Blood Culture - Preliminary No Growth Day 4 Assessment: 1. Perforated appendicitis s/p laparoscopic appendectomy with peritonitis 2. post op fever, resolved 3. Atrial flutter 4. PCN allergy; rash as a child, low risk to take PCN now, tolerating zosyn well Plan: 1. will change zosyn to augmentin for 5 more days
[2018-09-27] MEDS: Amoxicillin/Clavulanate TAB* 500 MG PO SCH (20:13)
--- NOTE | 2018-09-27 21:59 | PN ---
Subjective Interval History: Pt with improved spirits and energy but still with low appetite. Reports she really enjoyed drinking milk this AM but didn't eat any other breakfast. Leukocytosis resolved after switch to Zosyn. ID switched to PO Augmentin for 5 more days. Still attempting to wean O2. HR better controlled with increased metoprolol. Objective Active Medications: Albuterol (Ventolin 2.5 Mg/3 Ml Neb.Jessica*) 2.5 mg INH Q4H PRN PRN Reason: SOB/WHEEZING Last Admin: 09/27/18 20:29 Dose: 2.5 mg Amiodarone HCl (Cordarone Tab*) 200 mg PO DAILY [facility] Last Admin: 09/27/18 08:46 Dose: 200 mg Amoxicillin/Clavulanate Potassium (Augmentin Tab*) 500 mg PO BID [facility] Last Admin: 09/27/18 20:13 Dose: 500 mg Apixaban (Eliquis*) 5 mg PO BID [facility] Last Admin: 09/27/18 20:13 Dose: 5 mg Atorvastatin Calcium (Lipitor*) 10 mg PO DAILY [facility] Last Admin: 09/27/18 08:46 Dose: 10 mg Levothyroxine Sodium (Synthroid Tab*) 50 mcg PO DAILY@0600 [facility] Last Admin: 09/27/18 05:44 Dose: 50 mcg Metoprolol Tartrate (Lopressor Tab*) 25 mg PO DAILY [facility] Last Admin: 09/27/18 08:46 Dose: 25 mg Metoprolol Tartrate (Lopressor Iv*) 5 mg IV Q5M PRN PRN Reason: rapid afib Last Admin: 09/27/18 08:46 Dose: 5 mg Oxycodone/Acetaminophen (Percocet 5/325 Tab*) 1 tab PO Q6H PRN PRN Reason: PAIN Last Admin: 09/24/18 09:01 Dose: 1 tab Polyethylene Glycol/Electrolytes (Miralax*) 17 gm PO DAILY PRN PRN Reason: CONSTIPATION Prochlorperazine Edisylate (Compazine Inj*) 5 mg IV Q6H PRN PRN Reason: NAUSEA/VOMITING Vital Signs - 8 hr 09/27/18 09/27/18 09/27/18 16:00 16:02 20:29 Temperature 97.7 F Pulse Rate 79 83 Respiratory 14 16 Rate Blood Pressure 142/56 (mmHg) O2 Sat by Pulse 99 100 97 Oximetry Oxygen Devices in Use Now: Nasal Cannula Appearance: well appearing, sitting in chair and looking out window Respiratory: Clear to Auscultation Cardiovascular: - - irreg irreg Abdominal: - - soft, nontender, surgical sites clean and intact Extremities: No Edema Result Diagrams: 09/27/18 06:31 09/27/18 06:31 Additional Lab and Data: Microbiology 09/23/18 06:20 Misc Fluid (See Comment) - Other Gram Stain - Final 09/23/18 06:20 Misc Fluid (See Comment) - Other Body Fluid Culture - Preliminary Klebsiella Pneumoniae Enterococcus Faecalis Xin Albicans 09/23/18 06:20 Body Fluid - Other Anaerobic Culture - Preliminary Bacteroides Vulgatus 09/23/18 02:44 Blood Venous Aerobic Blood Culture - Final Not Reportable 09/23/18 02:44 Blood Venous Anaerobic Blood Culture - Final Not Reportable 09/23/18 02:44 Blood Venous Blood Culture - Preliminary No Growth Day 2 09/22/18 23:57 Blood Venous Aerobic Blood Culture - Preliminary No Growth Day 2 09/22/18 23:57 Blood Venous Anaerobic Blood Culture - Final Not Reportable 09/22/18 23:51 Blood Venous Aerobic Blood Culture - Preliminary No Growth Day 2 09/22/18 23:51 Blood Venous Anaerobic Blood Culture - Preliminary No Growth Day 2 09/22/18 19:40 Urine Urine Culture - Final Microbiology and Other Data: Microbiology 09/23/18 06:20 Gram Stain - Final Misc Fluid (See Comment) - Other Assess/Plan/Problems-Billing 88W with HTN, hypothyroid, anxiety, who presented with acute abdominal pain and septic shock, found with perforated appendix now s/p appendectomy 09/24. Post op course c/b paroxysmal aflutter now on amiodarone. Rates better controlled and on oral antibiotics. - Patient Problems (1) Appendicitis with perforation Comment: found with perforated appendicitis on ex lap, now s/p appy on 09/23. - cefepime (09/23 - 09/25) switched to Zosyn (09/26 - ) given resistent Klebs, now on Augmentin: last day 10/01 - appreciate surgery, ID recs - monitor abdominal exam - advance diet as tolerated - encourage OOBA and IS while post-op, need to wean O2 (2) Supraventricular arrhythmia Comment: Afib in setting of post-op and fevers. - cont amiodarone - metoprolol 25 q12h - appreciate cardiology following - Dr. Conti - coverage appointment manager recommends stress at outpatient, not during admission - cont apixaban (3) Hypertension Comment: holding home irbesartan 150mg in setting of septic shock - monitor BP closely and restart when indicated (4) Hypothyroid Comment: TSH 1.3. Goal likely higher than that given age. Will defer to outpatient management given acutely sick, which may influence TSH levels. - cont home levothyroxine 50mcg daily (5) Anxiety Comment: - holding home diazepam 5mg bid prn given acute illness, monitor for withdrawal (6) DVT prophylaxis Comment: - on therapeutic AC Status and Disposition: Inpatient medical floors post-op.
[2018-09-28] MEDS: Levothyroxine TAB* 50 MCG TAB PO SCH (05:09)
[2018-09-28] MEDS: Atorvastatin* 10 MG TAB PO SCH (08:29)
[2018-09-28] MEDS: Amiodarone TAB* 200 MG PO SCH (08:29)
[2018-09-28] MEDS: Amoxicillin/Clavulanate TAB* 500 MG PO SCH ×2 (08:29→20:21)
[2018-09-28] MEDS: Metoprolol Tartrate TAB* 25 MG PO SCH (08:29)
[2018-09-28] MEDS: Apixaban* 5 MG TAB PO SCH ×2 (08:29→20:21)
[2018-09-28] MEDS: Albuterol 2.5 MG/3 ML NEB.SOL* (0.083%) INH PRN (08:30)
--- NOTE | 2018-09-28 09:31 | PN ---
Progress Note - Progress Note Date of Service: 09/28/18 SOAP: Subjective: Pt seen and examined. no abdo pain. c/o SOB. appetite improving. Ambulated together Objective: Temp Pulse Resp BP Pulse Ox 98.3 F 86 18 152/62 95 09/28/18 07:23 09/28/18 07:23 09/28/18 07:23 09/28/18 07:23 09/28/18 07:23 on 5L nc a and o x3 lngs ; decres BS b/l, no rales, wheezes abdo: soft/ ND/ tender at LLQ incision sites, no rebound ext wnl Assessment: POD 5 lap appy, perforated, on O2 Plan: pulm toilet incentive spirometer CXR if worsens advance diet d/c plan as per hosp. con abx as per ID
[2018-09-28] MEDS ORDERED: Spiriva Inhaler DEVICE* 1 EACH DEVICE INH SCH (12:00)
[2018-09-28] MEDS: Tiotropium CAP.INH* CAP.INH/18 MCG (USE ORDER SET !) INH SCH (13:01)
--- NOTE | 2018-09-28 18:20 | PN ---
Subjective Interval History: Hgb stable. Leukocytosis resolved. Pt still with O2 requirements, and she states she did not have O2 at home. Given significant smoking history and hyperinflation on CXR, I wonder if pt has undiagnosed COPD. She still reports occasional SOB, and it is not associated with RVR. Starting Spiriva today and will follow symptoms. Appetite is better. Switched to PO abx yesterday. Noted to be walking around the floors quite quickly with RN and O2. Objective Active Medications: Albuterol (Ventolin 2.5 Mg/3 Ml Neb.Jessica*) 2.5 mg INH Q4H PRN PRN Reason: SOB/WHEEZING Last Admin: 09/28/18 08:30 Dose: 2.5 mg Amiodarone HCl (Cordarone Tab*) 200 mg PO DAILY [facility] Last Admin: 09/28/18 08:29 Dose: 200 mg Amoxicillin/Clavulanate Potassium (Augmentin Tab*) 500 mg PO BID [facility] Last Admin: 09/28/18 08:29 Dose: 500 mg Apixaban (Eliquis*) 5 mg PO BID [facility] Last Admin: 09/28/18 08:29 Dose: 5 mg Atorvastatin Calcium (Lipitor*) 10 mg PO DAILY [facility] Last Admin: 09/28/18 08:29 Dose: 10 mg Device (Tiotropium Inhaler Device*) 1 each INH .USE w/ SPIRIVA CAPS [facility] Levothyroxine Sodium (Synthroid Tab*) 50 mcg PO DAILY@0600 [facility] Last Admin: 09/28/18 05:09 Dose: 50 mcg Metoprolol Succinate (Toprol Xl Tab*) 50 mg PO BEDTIME [facility] Metoprolol Tartrate (Lopressor Iv*) 5 mg IV Q5M PRN PRN Reason: rapid afib Last Admin: 09/27/18 08:46 Dose: 5 mg Oxycodone/Acetaminophen (Percocet 5/325 Tab*) 1 tab PO Q6H PRN PRN Reason: PAIN Last Admin: 09/24/18 09:01 Dose: 1 tab Polyethylene Glycol/Electrolytes (Miralax*) 17 gm PO DAILY PRN PRN Reason: CONSTIPATION Last Admin: 09/28/18 08:29 Dose: 17 gm Prochlorperazine Edisylate (Compazine Inj*) 5 mg IV Q6H PRN PRN Reason: NAUSEA/VOMITING Tiotropium [place] (Spiriva Cap.Inh*) 1 cap INH DAILY [facility] Last Admin: 09/28/18 13:01 Dose: 1 cap Vital Signs - 8 hr 09/28/18 09/28/18 11:20 15:00 Temperature 98.6 F 98.1 F Pulse Rate 76 82 Respiratory 20 22 Rate Blood Pressure 137/55 175/67 (mmHg) O2 Sat by Pulse 99 97 Oximetry Oxygen Devices in Use Now: Nasal Cannula Appearance: very comfortable, reclining in chair Ears/Nose/Mouth/Throat: Mucous Membranes Moist Respiratory: Clear to Auscultation Cardiovascular: RRR Abdominal: NL Sounds; No Tenderness; No Distention, - - clean port sites Extremities: No Edema Neurological: Alert and Oriented x 3 Result Diagrams: 09/27/18 06:31 09/27/18 06:31 Additional Lab and Data: Microbiology 09/23/18 06:20 Misc Fluid (See Comment) - Other Gram Stain - Final 09/23/18 06:20 Misc Fluid (See Comment) - Other Body Fluid Culture - Preliminary Klebsiella Pneumoniae Enterococcus Faecalis Xin Albicans 09/23/18 06:20 Body Fluid - Other Anaerobic Culture - Preliminary Bacteroides Vulgatus 09/23/18 02:44 Blood Venous Aerobic Blood Culture - Final Not Reportable 09/23/18 02:44 Blood Venous Anaerobic Blood Culture - Final Not Reportable 09/23/18 02:44 Blood Venous Blood Culture - Preliminary No Growth Day 2 09/22/18 23:57 Blood Venous Aerobic Blood Culture - Preliminary No Growth Day 2 09/22/18 23:57 Blood Venous Anaerobic Blood Culture - Final Not Reportable 09/22/18 23:51 Blood Venous Aerobic Blood Culture - Preliminary No Growth Day 2 09/22/18 23:51 Blood Venous Anaerobic Blood Culture - Preliminary No Growth Day 2 09/22/18 19:40 Urine Urine Culture - Final Microbiology and Other Data: Microbiology 09/23/18 06:20 Gram Stain - Final Misc Fluid (See Comment) - Other Assess/Plan/Problems-Billing 88W with HTN, hypothyroid, anxiety, who presented with acute abdominal pain and septic shock, found with perforated appendix now s/p appendectomy 09/24. Post op course c/b paroxysmal aflutter now on amiodarone. Rates better controlled and on oral antibiotics. Still with O2 requirement - may have underlying undiagnosed COPD. - Patient Problems (1) Appendicitis with perforation Comment: found with perforated appendicitis on ex lap, now s/p appy on 09/23. - cefepime (09/23 - 09/25) switched to Zosyn (09/26 - ) given resistent Klebs, now on Augmentin: last day 10/01 - appreciate surgery, ID recs - monitor abdominal exam - advance diet as tolerated - encourage OOBA and IS while post-op, need to wean O2 (2) Supraventricular arrhythmia Comment: Afib in setting of post-op and fevers. - started amiodarone this admission - metoprolol suc 50mg nightly - appreciate cardiology following - Dr. Conti - will f/u with him outpatient - coverage ground wirer recommends stress at outpatient, not during admission - cont apixaban (3) Hypoxia Current Visit: Yes Comment: New this admission, although unclear if pt could have had this before and not known it. Doesn't carry COPD diagnosis but has significant smoking history with hyperinflation on CXR. - start Spiriva and monitor symptoms - may need to go home on O2 (4) Hypertension Comment: holding home irbesartan 150mg in setting of septic shock - monitor BP closely and restart when indicated (5) Hypothyroid Comment: TSH 1.3. Goal likely higher than that given age. Will defer to outpatient management given acutely sick, which may influence TSH levels. - cont home levothyroxine 50mcg daily (6) Anxiety Comment: - holding home diazepam 5mg bid prn given acute illness, monitor for withdrawal (7) DVT prophylaxis Comment: - on therapeutic AC Status and Disposition: Inpatient medical floors post-op.
[2018-09-28] MEDS: Metoprolol Succinate XL TAB* 50 MG PO SCH (20:21)
[2018-09-28] MEDS: amLODIPine TAB* 5 MG PO SCH (21:03)
[2018-09-29] MEDS: Albuterol 2.5 MG/3 ML NEB.SOL* (0.083%) INH PRN (05:52)
[2018-09-29] MEDS: Levothyroxine TAB* 50 MCG TAB PO SCH (06:45)
[2018-09-29] MEDS: amLODIPine TAB* 5 MG PO SCH (08:19)
[2018-09-29] MEDS: Atorvastatin* 10 MG TAB PO SCH (08:19)
[2018-09-29] MEDS: Apixaban* 5 MG TAB PO SCH ×2 (08:19→19:46)
[2018-09-29] MEDS: Amiodarone TAB* 200 MG PO SCH (08:19)
[2018-09-29] MEDS: Amoxicillin/Clavulanate TAB* 500 MG PO SCH ×2 (08:19→19:45)
[2018-09-29] MEDS: Tiotropium CAP.INH* CAP.INH/18 MCG (USE ORDER SET !) INH SCH (08:44)
--- NOTE | 2018-09-29 10:24 | PN ---
Subjective Date of Service: 09/29/18 Interval History: HOSPITALIST PROGRESS NOTE Patient seen and examined at bedside. Care reviewed and d/w Mai Shine RN. She feels much improved. Denies abdominal pain, passed flatus and stool. Tolerating diet with no issues. Still has some dyspnea with exertion and requires supplemental O2. Family History: Unchanged from Admission Social History: Unchanged from Admission Past Medical History: Unchanged from Admission Objective Active Medications: Albuterol (Ventolin 2.5 Mg/3 Ml Neb.Jessica*) 2.5 mg INH Q4H PRN PRN Reason: SOB/WHEEZING Last Admin: 09/29/18 05:52 Dose: 2.5 mg Amiodarone HCl (Cordarone Tab*) 200 mg PO DAILY [facility] Last Admin: 09/29/18 08:19 Dose: 200 mg Amlodipine Besylate (Norvasc Tab*) 2.5 mg PO DAILY [facility] Last Admin: 09/29/18 08:19 Dose: 2.5 mg Amoxicillin/Clavulanate Potassium (Augmentin Tab*) 500 mg PO BID [facility] Last Admin: 09/29/18 08:19 Dose: 500 mg Apixaban (Eliquis*) 5 mg PO BID [facility] Last Admin: 09/29/18 08:19 Dose: 5 mg Atorvastatin Calcium (Lipitor*) 10 mg PO DAILY [facility] Last Admin: 09/29/18 08:19 Dose: 10 mg Device (Tiotropium Inhaler Device*) 1 each INH .USE w/ SPIRIVA CAPS [facility] Levothyroxine Sodium (Synthroid Tab*) 50 mcg PO DAILY@0600 [facility] Last Admin: 09/29/18 06:45 Dose: 50 mcg Metoprolol Succinate (Toprol Xl Tab*) 50 mg PO BEDTIME [facility] Last Admin: 09/28/18 20:21 Dose: 50 mg Metoprolol Tartrate (Lopressor Iv*) 5 mg IV Q5M PRN PRN Reason: rapid afib Last Admin: 09/27/18 08:46 Dose: 5 mg Oxycodone/Acetaminophen (Percocet 5/325 Tab*) 1 tab PO Q6H PRN PRN Reason: PAIN Last Admin: 09/24/18 09:01 Dose: 1 tab Polyethylene Glycol/Electrolytes (Miralax*) 17 gm PO DAILY PRN PRN Reason: CONSTIPATION Last Admin: 03/23/19 08:29 Dose: 17 gm Prochlorperazine Edisylate (Compazine Inj*) 5 mg IV Q6H PRN PRN Reason: NAUSEA/VOMITING Tiotropium [place] (Spiriva Cap.Inh*) 1 cap INH DAILY [facility] Last Admin: 09/29/18 08:44 Dose: 1 cap Vital Signs - 8 hr 09/29/18 09/29/18 09/29/18 03:57 04:34 05:54 Temperature 97.9 F Pulse Rate 79 77 Respiratory 20 16 Rate Blood Pressure 189/86 157/51 (mmHg) O2 Sat by Pulse 100 99 Oximetry 09/29/18 09/29/18 09/29/18 07:10 08:00 08:46 Temperature 98.4 F Pulse Rate 82 77 Respiratory 20 16 16 Rate Blood Pressure 156/54 (mmHg) O2 Sat by Pulse 99 98 Oximetry Oxygen Devices in Use Now: Nasal Cannula Appearance: Elderly lady lying in bed in NAD. Eyes: No Scleral Icterus Ears/Nose/Mouth/Throat: Mucous Membranes Moist Neck: Trachea Midline Respiratory: Symmetrical Chest Expansion and Respiratory Effort, - - BS+ bilaterally, diminished in bases Cardiovascular: RRR - Normal S1 and S2 Abdominal: NL Sounds; No Tenderness; No Distention Extremities: No Edema Neurological: Alert and Oriented x 3, NL Muscle Strength and Tone Result Diagrams: 09/27/18 06:31 09/27/18 06:31 Additional Lab and Data: Microbiology 09/23/18 06:20 Misc Fluid (See Comment) - Other Gram Stain - Final 09/23/18 06:20 Misc Fluid (See Comment) - Other Body Fluid Culture - Preliminary Klebsiella Pneumoniae Enterococcus Faecalis Xin Albicans 09/23/18 06:20 Body Fluid - Other Anaerobic Culture - Preliminary Bacteroides Vulgatus 09/23/18 02:44 Blood Venous Aerobic Blood Culture - Final Not Reportable 09/23/18 02:44 Blood Venous Anaerobic Blood Culture - Final Not Reportable 09/23/18 02:44 Blood Venous Blood Culture - Preliminary No Growth Day 2 09/22/18 23:57 Blood Venous Aerobic Blood Culture - Preliminary No Growth Day 2 09/22/18 23:57 Blood Venous Anaerobic Blood Culture - Final Not Reportable 09/22/18 23:51 Blood Venous Aerobic Blood Culture - Preliminary No Growth Day 2 09/22/18 23:51 Blood Venous Anaerobic Blood Culture - Preliminary No Growth Day 2 09/22/18 19:40 Urine Urine Culture - Final Assess/Plan/Problems-Billing Assessment: Mrs Calderon is an 88yo F with PMH of HTN, hypothyroid, anxiety, who presented with acute abdominal pain and septic shock, found with perforated appendix now s /p appendectomy 09/24. Post op course c/b paroxysmal aflutter now on amiodarone. Rates better controlled and on oral antibiotics. Still with O2 requirement - may have underlying undiagnosed COPD. - Patient Problems (1) Acute hypoxemic respiratory failure Comment: - New this admission, although unclear if pt could have had this before and not known it. Doesn't carry COPD diagnosis but has significant smoking history. - Continue Spiriva and monitor symptoms. - May require supplemental O2 on discharge. - Check CxR, but has no overt signs of fluid overload. (2) Appendicitis with perforation Comment: - s/p appendectomy on 09/23. - Was on Cefepime (09/23 - 09/25) switched to Zosyn (09/26 - ) given resistent Klebsiella, now on Augmentin: last day 10/01 - Appreciate surgery input. (3) Atrial fibrillation Comment: - Developed Afib in the setting of sepsis and surgery. - Continue Metoprolol, Amiodarone, and Apixaban. - Remains in NSR. (4) Hypertension Comment: - BP trendin up - amlodipine added last night. - Continue to monitor. (5) Hypothyroid Comment: - Continue levothyroxine. (6) Anxiety Comment: - Resume diazepam PRN as patient states she had severe muscle spasms in the past if she went without it for too long. (7) DVT prophylaxis Comment: - On Apixaban. (8) Full code status Status and Disposition: Inpatient.
--- NOTE | 2018-09-29 10:57 | PN ---
Progress Note - Progress Note Date of Service: 09/29/18 SOAP: Subjective: Pt seen and examined. no abdo pain. continued SOB. appetite improving. Objective: a and o x3 abdo: soft/ ND/ nontender ext wnl Assessment: POD 6 lap appy, perforated, on O2 Plan: pulm toilet con abx as per ID incentive spirometer d/c plan as per hosp.
[2018-09-29] MEDS ORDERED: Diazepam TAB(*) 5 MG PO PRN (16:22)
[2018-09-29] MEDS ORDERED: Furosemide IV* 10 MG/ML 2 ML VIAL (20 MG) IV SLOW PU ONE (17:57)
[2018-09-29] MEDS: Metoprolol Succinate XL TAB* 50 MG PO SCH (19:44)
[2018-09-30] MEDS: Levothyroxine TAB* 50 MCG TAB PO SCH (05:45)
[2018-09-30] MEDS: Tiotropium CAP.INH* CAP.INH/18 MCG (USE ORDER SET !) INH SCH (08:16)
--- NOTE | 2018-09-30 08:56 | PN ---
Progress Note - Progress Note Date of Service: 09/30/18 SOAP: Subjective: CC: appendicitis HPI: 88 year old woman with perforated appendicitis s/p appendectomy. Appetite improving, +BM, loose to soft. No abd pain currently. Objective: Vital Signs Temp 36.8 C 09/30/18 07:10 Pulse 78 09/30/18 08:17 Resp 14 09/30/18 08:17 BP 162/58 09/30/18 07:10 Pulse Ox 96 09/30/18 08:17 Intake & Output 09/29/18 09/30/18 09/30/18 18:59 06:59 18:59 Intake Total 480 0 120 Output Total 900 100 Balance 480 -900 20 Intake: Oral 480 0 120 Output: Urine 900 100 Other: Estimated Void Medium Date of Last Bowel 09-30-18 Movement # Bowel Movements 1 1 1 Estimated Stool Amount Small Small Small # Voids 1 Gen:awake, no distress, mildly flushed HEENT: no thrush Heart:RRR no murmur Lungs:CTA BL Abd:+BS, soft, no rebound , port sites no erythema Skin: no rash Assessment: 1. Perforated appendicitis s/p laparoscopic appendectomy with peritonitis 2. post op fever, resolved 3. Atrial flutter 4. PCN allergy; rash as a child, low risk to take PCN now, tolerated augmentin and zosyn Plan: 1. augmentin last dose 10/01 (ordered) 25 minutes floor time >50 % face to face in counseling regarding abx plans and monitoring for symptoms of infection
--- NOTE | 2018-09-30 09:30 | PN ---
Progress Note - Progress Note Date of Service: 09/30/18 Note: s/p perf appx Afeb Cynthia po's, appetite better passing stool No abd pain Abd soft, non-tender, incis clean No surgical problems, will follow prn. Disposition per hospitalist D/W Dr Bhatt
[2018-09-30] MEDS: Amiodarone TAB* 200 MG PO SCH (10:02)
[2018-09-30] MEDS: amLODIPine TAB* 5 MG PO SCH (10:04)
[2018-09-30] MEDS: Amoxicillin/Clavulanate TAB* 500 MG PO SCH ×2 (10:05→19:33)
[2018-09-30] MEDS: Apixaban* 5 MG TAB PO SCH ×2 (10:06→19:32)
[2018-09-30] MEDS: Atorvastatin* 10 MG TAB PO SCH (10:07)
[2018-09-30] MEDS: Albuterol 2.5 MG/3 ML NEB.SOL* (0.083%) INH PRN (10:25)
[2018-09-30] MEDS ORDERED: amLODIPine TAB* 5 MG PO ONE (10:35)
[2018-09-30] MEDS ORDERED: Furosemide IV* 10 MG/ML 2 ML VIAL (20 MG) IV SLOW PU ONE (10:36)
--- NOTE | 2018-09-30 15:13 | PN ---
Subjective Date of Service: 09/30/18 Interval History: HOSPITALIST PROGRESS NOTE Patient seen and examined at bedside. Care reviewed and d/w Sudha Connor RN. She feels better today. Denies abdominal pain, appetite is good, +BM today. SO2 was 90% on RA with exertion. Family History: Unchanged from Admission Social History: Unchanged from Admission Past Medical History: Unchanged from Admission Objective Active Medications: Albuterol (Ventolin 2.5 Mg/3 Ml Neb.Jessica*) 2.5 mg INH Q4H PRN PRN Reason: SOB/WHEEZING Last Admin: 09/30/18 10:25 Dose: 2.5 mg Amiodarone HCl (Cordarone Tab*) 200 mg PO DAILY [facility] Last Admin: 09/30/18 10:02 Dose: 200 mg Amlodipine Besylate (Norvasc Tab*) 5 mg PO DAILY [facility] Amoxicillin/Clavulanate Potassium (Augmentin Tab*) 500 mg PO BID [facility] Stop: 10/01/18 12:00 Last Admin: 09/30/18 10:05 Dose: 500 mg Apixaban (Eliquis*) 5 mg PO BID [facility] Last Admin: 09/30/18 10:06 Dose: 5 mg Atorvastatin Calcium (Lipitor*) 10 mg PO DAILY [facility] Last Admin: 09/30/18 10:07 Dose: 10 mg Device (Tiotropium Inhaler Device*) 1 each INH .USE w/ SPIRIVA CAPS [facility] Diazepam (Valium Tab(*)) 5 mg PO Q12H PRN PRN Reason: ANXIETY Last Admin: 09/29/18 19:50 Dose: 5 mg Levothyroxine Sodium (Synthroid Tab*) 50 mcg PO DAILY@0600 [facility] Last Admin: 09/30/18 05:45 Dose: 50 mcg Metoprolol Succinate (Toprol Xl Tab*) 50 mg PO BEDTIME [facility] Last Admin: 09/29/18 19:44 Dose: 50 mg Metoprolol Tartrate (Lopressor Iv*) 5 mg IV Q5M PRN PRN Reason: rapid afib Last Admin: 09/27/18 08:46 Dose: 5 mg Oxycodone/Acetaminophen (Percocet 5/325 Tab*) 1 tab PO Q6H PRN PRN Reason: PAIN Last Admin: 09/24/18 09:01 Dose: 1 tab Polyethylene Glycol/Electrolytes (Miralax*) 17 gm PO DAILY PRN PRN Reason: CONSTIPATION Last Admin: 09/28/18 08:29 Dose: 17 gm Prochlorperazine Edisylate (Compazine Inj*) 5 mg IV Q6H PRN PRN Reason: NAUSEA/VOMITING Tiotropium [place] (Spiriva Cap.Inh*) 1 cap INH DAILY [facility] Last Admin: 09/30/18 08:16 Dose: 1 cap Vital Signs - 8 hr 09/30/18 09/30/18 09/30/18 07:10 07:40 08:17 Temperature 98.3 F Pulse Rate 76 78 Respiratory 18 16 14 Rate Blood Pressure 162/58 (mmHg) O2 Sat by Pulse 97 96 96 Oximetry 09/30/18 09/30/18 10:27 14:48 Temperature Pulse Rate 70 Respiratory 14 Rate Blood Pressure (mmHg) O2 Sat by Pulse 98 98 Oximetry Oxygen Devices in Use Now: Nasal Cannula Appearance: Pleasant elderly lady sitting up in bed in NAD. Eyes: No Scleral Icterus Ears/Nose/Mouth/Throat: Mucous Membranes Moist Neck: Trachea Midline Respiratory: Symmetrical Chest Expansion and Respiratory Effort, Clear to Auscultation Cardiovascular: RRR - Normal S1 and S2 Abdominal: NL Sounds; No Tenderness; No Distention Neurological: Alert and Oriented x 3, NL Muscle Strength and Tone Result Diagrams: 09/27/18 06:31 09/27/18 06:31 Assess/Plan/Problems-Billing Assessment: Mrs Calderon is an 88yo F with PMH of HTN, hypothyroid, anxiety, who presented with acute abdominal pain and septic shock, found with perforated appendix now s /p appendectomy 09/24. Post op course c/b paroxysmal aflutter now on amiodarone. Rates better controlled and on oral antibiotics. Still with O2 requirement - may have underlying undiagnosed COPD. - Patient Problems (1) Acute hypoxemic respiratory failure Comment: - New this admission, although unclear if pt could have had this before and not known it. Doesn't carry COPD diagnosis but has significant smoking history. - Continue Spiriva and monitor symptoms. - CxR suggestive of fluid overload, responding to diuresis with Furosemide. - Most likely will not need supplemental O2 on discharge. (2) Appendicitis with perforation Comment: - s/p appendectomy on 09/23. - Was on Cefepime (09/23 - 09/25) switched to Zosyn (09/26 - ) given resistent Klebsiella, now on Augmentin: last day 10/01 - Appreciate surgery input. (3) Atrial fibrillation Comment: - Developed Afib in the setting of sepsis and surgery. - Continue Metoprolol, Amiodarone, and Apixaban. - Remains in NSR. (4) Hypertension Comment: - BP trendin up - amlodipine added last night. - Continue to monitor. (5) Hypothyroid Comment: - Continue levothyroxine. (6) Anxiety Comment: - Resume diazepam PRN as patient states she had severe muscle spasms in the past if she went without it for too long. (7) DVT prophylaxis Comment: - On Apixaban. (8) Full code status Status and Disposition: Inpatient.
[2018-09-30] MEDS: Metoprolol Succinate XL TAB* 50 MG PO SCH (19:33)
[2018-10-01] MEDS: Levothyroxine TAB* 50 MCG TAB PO SCH (05:06)
[2018-10-01] MEDS: Tiotropium CAP.INH* CAP.INH/18 MCG (USE ORDER SET !) INH SCH (07:19)
[2018-10-01] MEDS: amLODIPine TAB* 5 MG PO SCH (08:58)
[2018-10-01] MEDS: Apixaban* 5 MG TAB PO SCH ×2 (08:58→20:05)
[2018-10-01] MEDS: Amoxicillin/Clavulanate TAB* 500 MG PO SCH (08:58)
[2018-10-01] MEDS: Amiodarone TAB* 200 MG PO SCH (08:58)
[2018-10-01] MEDS: Atorvastatin* 10 MG TAB PO SCH (08:59)
--- NOTE | 2018-10-01 11:00 | PN ---
Subjective Date of Service: 10/01/18 Interval History: HOSPITALIST PROGRESS NOTE Patient seen and examined at bedside. Care reviewed and d/w Sudha Connor RN. She offers no new complaints today. Denies abdominal pain, +BM, tolerating diet well. Denies dyspnea, down to 1 liter of supplemental O2. Ambulating around unit 3 times a day with a walker. Family History: Unchanged from Admission Social History: Unchanged from Admission Past Medical History: Unchanged from Admission Objective Active Medications: Albuterol (Ventolin 2.5 Mg/3 Ml Neb.Jessica*) 2.5 mg INH Q4H PRN PRN Reason: SOB/WHEEZING Last Admin: 09/30/18 10:25 Dose: 2.5 mg Amiodarone HCl (Cordarone Tab*) 200 mg PO DAILY [facility] Last Admin: 10/01/18 08:58 Dose: 200 mg Amlodipine Besylate (Norvasc Tab*) 5 mg PO DAILY [facility] Last Admin: 10/01/18 08:58 Dose: 5 mg Amoxicillin/Clavulanate Potassium (Augmentin Tab*) 500 mg PO BID [facility] Stop: 10/01/18 12:00 Last Admin: 10/01/18 08:58 Dose: 500 mg Apixaban (Eliquis*) 5 mg PO BID [facility] Last Admin: 10/01/18 08:58 Dose: 5 mg Atorvastatin Calcium (Lipitor*) 10 mg PO DAILY [facility] Last Admin: 10/01/18 08:59 Dose: 10 mg Device (Tiotropium Inhaler Device*) 1 each INH .USE w/ SPIRIVA CAPS [facility] Diazepam (Valium Tab(*)) 5 mg PO Q12H PRN PRN Reason: ANXIETY Last Admin: 09/29/18 19:50 Dose: 5 mg Levothyroxine Sodium (Synthroid Tab*) 50 mcg PO DAILY@0600 [facility] Last Admin: 10/01/18 05:06 Dose: 50 mcg Metoprolol Succinate (Toprol Xl Tab*) 50 mg PO BEDTIME [facility] Last Admin: 09/30/18 19:33 Dose: 50 mg Metoprolol Tartrate (Lopressor Iv*) 5 mg IV Q5M PRN PRN Reason: rapid afib Last Admin: 09/27/18 08:46 Dose: 5 mg Oxycodone/Acetaminophen (Percocet 5/325 Tab*) 1 tab PO Q6H PRN PRN Reason: PAIN Last Admin: 09/24/18 09:01 Dose: 1 tab Polyethylene Glycol/Electrolytes (Miralax*) 17 gm PO DAILY PRN PRN Reason: CONSTIPATION Last Admin: 09/28/18 08:29 Dose: 17 gm Prochlorperazine Edisylate (Compazine Inj*) 5 mg IV Q6H PRN PRN Reason: NAUSEA/VOMITING Tiotropium [place] (Spiriva Cap.Inh*) 1 cap INH DAILY [facility] Last Admin: 10/01/18 07:19 Dose: 1 cap Vital Signs - 8 hr 10/01/18 10/01/18 10/01/18 07:20 07:22 07:40 Temperature 97.6 F Pulse Rate 71 72 Respiratory 14 17 16 Rate Blood Pressure 143/54 (mmHg) O2 Sat by Pulse 97 96 97 Oximetry Oxygen Devices in Use Now: Nasal Cannula - 1 liter Appearance: Pleasant elderly lady sitting up in a recliner in NAD. Eyes: No Scleral Icterus Ears/Nose/Mouth/Throat: Mucous Membranes Moist Neck: Trachea Midline Respiratory: Symmetrical Chest Expansion and Respiratory Effort, Clear to Auscultation Cardiovascular: RRR - Normal S1 and S2 Abdominal: NL Sounds; No Tenderness; No Distention Neurological: Alert and Oriented x 3, NL Muscle Strength and Tone Result Diagrams: 09/27/18 06:31 09/27/18 06:31 Additional Lab and Data: Microbiology 09/23/18 06:20 Misc Fluid (See Comment) - Other Gram Stain - Final 09/23/18 06:20 Misc Fluid (See Comment) - Other Body Fluid Culture - Preliminary Klebsiella Pneumoniae Enterococcus Faecalis Xin Albicans 09/23/18 06:20 Body Fluid - Other Anaerobic Culture - Preliminary Bacteroides Vulgatus 09/23/18 02:44 Blood Venous Aerobic Blood Culture - Final Not Reportable 09/23/18 02:44 Blood Venous Anaerobic Blood Culture - Final Not Reportable 09/23/18 02:44 Blood Venous Blood Culture - Preliminary No Growth Day 2 09/22/18 23:57 Blood Venous Aerobic Blood Culture - Preliminary No Growth Day 2 09/22/18 23:57 Blood Venous Anaerobic Blood Culture - Final Not Reportable 09/22/18 23:51 Blood Venous Aerobic Blood Culture - Preliminary No Growth Day 2 09/22/18 23:51 Blood Venous Anaerobic Blood Culture - Preliminary No Growth Day 2 09/22/18 19:40 Urine Urine Culture - Final Assess/Plan/Problems-Billing Assessment: Mrs Calderon is an 88yo F with PMH of HTN, hypothyroid, anxiety, who presented with acute abdominal pain and septic shock, found with perforated appendix now s /p appendectomy 09/24. Post op course c/b paroxysmal aflutter now on amiodarone, now back in NSR. - Patient Problems (1) Acute hypoxemic respiratory failure Comment: - New this admission, although unclear if pt could have had this before and not known it. Doesn't carry COPD diagnosis but has significant smoking history. - Continue Spiriva. - CxR suggestive of fluid overload, responding to diuresis with Furosemide. - Weight down to 162 lbs. - Now requires 1 liter of supplemental O2. - No complaints of chest pain, palpitations, or dyspnea - will not check d-dimer , as it will be positive due to recent surgery. Has risk factors for PE with recent surgery, but already anticoagulated with Apixaban, and I'm concerned CTA chest would expose her kidneys to contrast load with risk of worsening renal function and would not add much information, as her SO2 is already improving and she's already anticoagulated. (2) Appendicitis with perforation Comment: - s/p appendectomy on 09/23. - Was on Cefepime (09/23 - 09/25) switched to Zosyn (09/26 - ) given resistent Klebsiella, now on Augmentin: last day today. - Surgery input appreciated - signed off. (3) Atrial fibrillation Comment: - Developed Afib in the setting of sepsis and surgery. - Continue Metoprolol, Amiodarone, and Apixaban. - Remains in NSR - Tele discontinued. (4) Hypertension Comment: - Controlled - continue Amlodipine. (5) Hypothyroid Comment: - Continue levothyroxine. (6) Anxiety Comment: - Resume diazepam PRN as patient states she had severe muscle spasms in the past if she went without it for too long. (7) DVT prophylaxis Comment: - On Apixaban. (8) Full code status Status and Disposition: Inpatient. At this point she's medicall stable for discharge, but concerned she is not "up to par" to be in her apartment. We talked about [facility], but she's not interested either. I'll request PT/OT evaluations again as she may benefit of rehab. CM to assist with discharge plan.
[2018-10-01] MEDS: Metoprolol Succinate XL TAB* 50 MG PO SCH (20:05)
[2018-10-02] MEDS: Levothyroxine TAB* 50 MCG TAB PO SCH (05:49)
[2018-10-02] MEDS: Tiotropium CAP.INH* CAP.INH/18 MCG (USE ORDER SET !) INH SCH (07:26)
[2018-10-02] MEDS: Amiodarone TAB* 200 MG PO SCH (08:24)
[2018-10-02] MEDS: amLODIPine TAB* 5 MG PO SCH (08:24)
[2018-10-02] MEDS: Atorvastatin* 10 MG TAB PO SCH (08:24)
[2018-10-02] MEDS: Apixaban* 5 MG TAB PO SCH (08:24)
[2018-10-02 09:30] LABS: ABS Basophils 0.1 10^3/ul (0-0.2); ABS Eosinophils 0.3 10^3/ul (0-0.6); ABS Lymphocytes 1.6 10^3/ul (1.0-4.8); ABS Monocytes 0.8 10^3/ul (0-0.8); ABS Neutrophils 6.6 10^3/ul (1.5-7.7); ABS Nucleated RBC 0 10^3/ul; Eosinophil % 2.9 %; Hematocrit 37 % (33-41); Hemoglobin 12.4 g/dL (12.0-16.0); Lymphocyte % 17.2 %; Mean Corpuscular HGB Conc 33 g/dL (31-36); Mean Corpuscular Hemoglobin 31 pg (27-31); Mean Corpuscular Volume 93 fL (80-97); Mean Platelet Volume 8.7 fL (7.4-10.4); Nucleated Red Blood Cells % 0; Platelet Count 337 10^3/uL (150-450); Red Blood Count 3.99 10^6 /uL (3.70-4.87); Red Cell Distribution Width 14 % (10.5-15); White Blood Count 9.4 10^3/uL (3.5-10.8)
[2018-10-02 09:50] LABS: BUN/Creatinine Ratio 14.7 (8-20); Calcium 8.7 mg/dL (8.6-10.3); EGFR African American 57.3 (>60); EGFR Non-African American 47.4 (>60); Potassium 4.1 mmol/L (3.5-5.0)
[2018-10-02 14:39] VITALS: BP 143/50
--- NOTE | 2018-10-03 01:10 | DS ---
CC: Dr. Ragland; Dr. Rizo; Dr. Torres.* DISCHARGE SUMMARY: DATE OF ADMISSION: 09/22/18 DATE OF DISCHARGE: 10/02/18 PRIMARY CARE PROVIDER: Dr. Ragland. ATTENDING PHYSICIAN: Dr. Landin* (dictated by Vikki Sotomayor NP). SURGICAL ATTENDING: Dr. Rizo. CONSULTATIONS: Dr. Torres. PRIMARY DIAGNOSES: 1. Sepsis secondary to appendicitis with perforation. 2. Atrial fibrillation. 3. Hypertension. 4. Hypothyroid. 5. Anxiety. 6. Acute hypoxic respiratory failure. SECONDARY DIAGNOSIS: Hyperlipidemia. CONSULTATIONS WHILE IN THE HOSPITAL: 1. Dr. Torres, Infectious Disease. 2. Dr. Rizo, Surgical. 3. Dr. Conti, Cardiology. PROCEDURES WHILE IN THE HOSPITAL: Laparoscopic appendectomy for perforated appendicitis. STUDIES DONE WHILE IN THE HOSPITAL: Dilated appendix with multiple appendicoliths, but no inflammatory changes in the adjacent mesentery. Chest x-ray: Impression: No active cardiopulmonary disease. Repeat chest x-ray on 09/25/18: Impression: No active cardiopulmonary disease noted. Transthoracic echo: Impression: Aortic valve leaflets are mildly thickened. Mild mitral annular calcification present. Left ventricle chamber size is decreased. Increased basal septal hypertrophy noted without evidence of increased gradient across the left ventricular outflow tract. Overall normal left ventricular systolic function. Appeared to be subtle hypokinesis of the mid to distal anteroseptal segment in some views with hyperdynamic function elsewhere. Estimated ejection fraction is 60% to 65%. Repeat chest x-ray, 09/29/18: Interstitial edema and small pleural effusions are noted consistent with CHF. DISCHARGE HOME MEDICATIONS: Continued home medications: 1. Acetaminophen 500 mg p.o. b.i.d. 2. Atorvastatin 10 mg p.o. b.i.d. 3. Diazepam 5 mg p.o. b.i.d. as needed for anxiety. 4. Milk of mag 50 mL p.o. daily as needed. 5. Levothyroxine 50 mcg p.o. daily. Discontinued home medication: Irbesartan 150 mg p.o. daily. [place] Medications: 1. Amlodipine 2.5 mg p.o. daily. 2. Toprol XL 50 mg p.o. at bedtime. 3. Eliquis 5 mg p.o. b.i.d. 4. Augmentin 500 mg p.o. b.i.d. 5. Amiodarone 200 mg p.o. daily. HISTORY OF PRESENT ILLNESS/HOSPITAL COURSE: Ms. Calderon is an 88-year-old female with a past medical history significant for anxiety, hypertension, hyperlipidemia, and hypothyroid who presented to the emergency room on 09/22/18 with complaints of abdominal pain. During her emergency department stay, the patient was noted to meet criteria for sepsis as she presented with tachycardia and leukocytosis. In addition, there was a possible source of appendicitis. She was wynn cultured. She was given IV fluid bolus. She was started on Zosyn. General Surgery, (Dr. Rizo), was consulted with the initial plan to continue treatment with antibiotics and hopefully should respond and not require surgery. Later, it was noted that due to the patient's severe abdominal pain, starting to develop peritoneal findings with appendicolithiasis, there was concern for perforation, therefore patient was taken to the emergency room for laparoscopic appendectomy. This occurred on 09/23/18. Unfortunately, the patient's hospital stay was further complicated, as on the morning of 09/25/18 she was noted to have a rapid heart rate and to be symptomatic. She was transferred to telemetry. EKG revealed atypical aflutter, SVT approximately 160. The patient was treated with metoprolol and diltiazem, which was slowing her heart rate. She continued to be asymptomatic, but did complain of mild shortness of breath. She was restarted gently on diltiazem and was switched to amiodarone. The patient is currently on amiodarone. The patient is currently in normal sinus rhythm on tele. Due to the patient's development of AFib and bradycardia and tachycardia, the patient was started on apixaban, which she will continue. During this episode, the patient's losartan was discontinued and the patient was started on amlodipine 2.5 mg for blood pressure. The patient has been tolerating this well. also further complicated due to acute hypoxic respiratory failure. She does not carry a diagnosis of COPD, but does have a significant history of her smoking. The patient should continue Spiriva. Due to her respiratory failure, she did have a chest x-ray, which revealed fluid overload and responded to diuresis with furosemide. The patient was requiring supplemental oxygen. She has been successfully weaned to room air and satting within normal limits. The patient is stable for discharge home today. Vital signs as follows: Temp 97.9, HR 69, RR 20, O2 sat 95% on room air, BP 128 /44. REVIEW OF SYSTEMS: The patient denies chest pain, shortness of breath, nausea, vomiting, diarrhea, palpitations. The patient denies abdominal pain. The patient reports last BM was today and it was normal. A 14-point review of systems was completed, all others are negative. PHYSICAL EXAM: General: Ms. Calderon is an 88-year-old female who is sitting in bed. She appears in no acute distress. She appears stated age. HEENT: EOMs intact. PERRLA. Oral mucosa is moist without lesion. Posterior pharynx is clear. Neck: Supple. No lymphadenopathy. Respiratory: Lungs are clear to auscultation. No wheezes, rales or rhonchi. Good aeration. Cardiac: S1, S2 present. Regular rate and rhythm. No murmurs, rubs or gallops. Abdomen: Soft , nontender. Bowel sounds x4. Three lap sites with Steri-Strips intact. These sites are free from drainage, signs/symptoms of infection or any other worrisome findings. Extremities: No edema. No clubbing or cyanosis. No pain or deformities. Skin: Intact besides above mentioned laparoscopic sites to abdomen, which are benign. Neuro exam is grossly intact. LABORATORY DATA: WBC 9.4, hemoglobin 12.4, hematocrit 37, platelets 337,000. Sodium 140, potassium 4.1, chloride 102, carbon dioxide 32, BUN 16, creatinine 1.09, glucose 96, calcium 8.7. DISCHARGE PLAN/FOLLOWUP: 1. Laparoscopic appendectomy: As mentioned above, the patient is status post laparoscopic appendectomy. The patient has had a bowel movement. The patient denies pain. The patient's lap sites on abdomen are clean, dry and intact. Laparoscopic sites are also free from signs of infection. I have scheduled followup for the patient to see Dr. Rizo as an outpatient. 2. Acute hypoxic respiratory failure: As previously mentioned, the patient does not carry history of chronic obstructive pulmonary disease, but does have a significant history of smoking. The patient is to continue her Spiriva. The patient did have an episode of a little bit of fluid overload, which responded well to furosemide. I have encouraged the patient to weigh herself daily and contact her primary care and/or customs investigator if she has a greater than 3-pound weight gain in 1 day. The patient is satting well on room air. 3. Atrial fibrillation: The patient developed atrial fibrillation in the setting of surgery and sepsis. The patient is currently on metoprolol, amiodarone, and apixaban. The patient should continue these. The patient is in normal sinus rhythm. I have scheduled a followup with Dr. Conti per patient. The patient did have a mildly elevated troponin, which trended down. We suspect this is secondary to demand given atrial fibrillation plus atrial flutter. There was discussion that the patient might benefit from a cardiac cath as an outpatient. This will be deferred to her outpatient customs investigator, Dr. Conti. 4. Hypertension: The patient was initially on losartan when presenting to the emergency room. This has been discontinued. The patient is on amlodipine 2.5 mg and tolerating this well. The patient is normotensive. The patient is to follow up with her primary care and customs investigator regarding further adjustments if needed. 5. Hypothyroid. The patient's TSH is within normal limits. The patient to continue her levothyroxine as same. 6. Anxiety. The patient can resume her diazepam as same and follow up with her primary care if needed. 7. Hyperlipidemia: The patient is to continue atorvastatin. 8. Followup: I have scheduled patient to follow up with her primary care provider, Dr. Ragland. I would recommend repeat labs at this time including CBC and BMP. Specifically to follow the patient's creatinine. I have also scheduled the patient to follow up with Dr. Conti. The patient is to continue on the amiodarone, apixaban, and metoprolol until that time unless instructed otherwise by Dr. Conti. I have also scheduled to follow up with Dr. Rizo for reassessment as an outpatient. 9. Education: The patient was educated on signs and symptoms of new or worsening condition and when to return to the emergency department. The patient stated understanding. This is a summarized report of a complex medical history and hospital stay. For further details please see the entire medical record. PLAN: This plan was also discussed with my attending, Dr. Landin, who agrees with my plan. TIME SPENT: Approximately 60 minutes were spent on this discharge, greater than half the time was spent face to face with the patient discussing discharge plans and instructions. VIKKI SOTOMAYOR, ANAYA [id number]/CPS #: [id number] DAVID
== END 2018-10-02 15:58 | disposition home health service (06) | DRG 853 ==
LOC: ED 18:17 → MED 22:10 → ICU 09-23 04:51 → MED 09-23 11:37 → MEDTELE 09-25 09:36
PROVIDERS: ADMIT Internal Medicine; ATTEND Internal Medicine
PROC: 0DTJ4ZZ Resection of Appendix, Percutaneous Endoscopic Approach (ICD-10-PCS; principal; 2018-09-23 06:59)
DX: A41.9 Sepsis, unspecified organism (principal); K35.32 Acute appendicitis with perforation, localized peritonitis, and gangrene, without abscess; R65.21 Severe sepsis with septic shock; J96.01 Acute respiratory failure with hypoxia; I48.92 Unspecified atrial flutter; I47.1 Supraventricular tachycardia; J90 Pleural effusion, not elsewhere classified; R50.82 Postprocedural fever; I48.91 Unspecified atrial fibrillation; E87.70 Fluid overload, unspecified; E78.00 Pure hypercholesterolemia, unspecified; K21.9 Gastro-esophageal reflux disease without esophagitis; M19.90 Unspecified osteoarthritis, unspecified site; R40.2412 Glasgow coma scale score 13-15, at arrival to emergency department; E03.9 Hypothyroidism, unspecified; E78.5 Hyperlipidemia, unspecified; K38.1 Appendicular concretions; B96.6 Bacteroides fragilis [B. fragilis] as the cause of diseases classified elsewhere; I44.0 Atrioventricular block, first degree; B95.2 Enterococcus as the cause of diseases classified elsewhere; B96.1 Klebsiella pneumoniae [K. pneumoniae] as the cause of diseases classified elsewhere; I10 Essential (primary) hypertension; F41.9 Anxiety disorder, unspecified; Z98.51 Tubal ligation status; Z88.2 Allergy status to sulfonamides; Z86.010 Personal history of colon polyps; Z88.0 Allergy status to penicillin; Z91.013 Allergy to seafood; Z87.891 Personal history of nicotine dependence; Z90.49 Acquired absence of other specified parts of digestive tract; Z80.0 Family history of malignant neoplasm of digestive organs; Z82.49 Family history of ischemic heart disease and other diseases of the circulatory system; Z79.01 Long term (current) use of anticoagulants
CPT/HCPCS: 36415; 71046; 74176; 80048; 80053; 81003; 81015; 83605; 83690; 83735; 83880; 84443; 84484; 85025; 85027; 85610; 86140; 87040; 87070; 87073; 87076; 87077; 87086; 87184; 87186; 87205; 88304; 93005; 93306; 94640; 99285; A9270-GY; C1776; C8929; G8978-GP-CI; G8978-GP-CJ; G8979-GP-CI; G8987-GO-CI; G8988-GO-CI; G8989-GO-CI; J0282; J0360; J0692; J1100; J1170; J1940; J2250; J2270; J2405; J2543; J2704; J2710; J3010; J3490

== ENCOUNTER 2018-10-25 21:28 | Emergency (ER) | payer MEDICARE ==
--- NOTE | 2018-10-25 21:49 | ED ---
Allergic Reaction/Systemic - HPI Summary HPI Summary: 88 yo female presents to [facility] ED with rash. She tells me that over the last 2 days ago she noticed some red blotches to her arms and chest that have since worsened and spread to her legs and abdomen. They are mildly itchy, but not much. She has not applied any creams or lotions. No difficulty breathing or lip/ throat swelling. No recent illness or change in medications. Denies fever, cough , SOB, chest pain, dizziness. - History of Current Complaint Chief Complaint: EDAllergicReaction Time Seen by Provider: 10/25/18 21:48 Hx Obtained From: Patient Onset/Duration: Gradual Onset Severity Currently: None Pain Intensity: 0 - Allergies/Home Medications Allergies/Adverse Reactions: Allergies Allergy/AdvReac Type Severity Reaction Status Date / Time penicillin G Allergy Rash Verified 09/22/18 22:19 shellfish derived Allergy Hives Verified 09/22/18 22:19 Sulfa (Sulfonamide Allergy Hives Verified 09/22/18 22:19 Antibiotics) PMH/Surg Hx/FS Hx/Imm Hx Endocrine/Hematology History: Denies: Hx Anticoagulant Therapy Cardiovascular History: Reports: Hx Hypercholesterolemia, Hx Hypertension Denies: Hx Pacemaker/ICD Respiratory History: Reports: Hx Chronic Obstructive Pulmonary Disease (COPD) Denies: Hx Asthma GI History: Reports: Hx Gastroesophageal Reflux Disease Musculoskeletal History: Reports: Hx Arthritis Sensory History: Reports: Hx Contacts or Glasses - not with her Denies: Hx Eye Prosthesis, Hx Hearing Aid Opthamlomology History: Reports: Hx Contacts or Glasses - not with her Denies: Hx Eye Prosthesis Neurological History: Reports: Other Neuro Impairments/Disorders Denies: Hx Dementia Psychiatric History: Reports: Hx Anxiety Denies: Hx Panic Disorder - Surgical History Surgery Procedure, Year, and Place: COLORECTAL- RESECTION. CYST - REMOVED FROM [facility]ARTA BREAST. TUBAL LIGATION Infectious Disease History: No Infectious Disease History: Denies: Traveled Outside the [place] in Last 30 Days - Family History Known Family History: Negative: Blood Disorder - Social History Alcohol Use: None Substance Use Type: Reports: None Smoking Status (MU): Former Smoker Type: Cigarettes Have You Smoked in the Last Year: No Review of Systems Constitutional: Negative Eyes: Negative ENT: Negative Cardiovascular: Negative Respiratory: Negative Gastrointestinal: Negative Genitourinary: Negative Positive: Rash Neurological: Negative Psychological: Normal All Other Systems Reviewed And Are Negative: Yes Physical Exam - Summary Physical Exam Summary: GENERAL: NAD. WDWN. No pain distress. SKIN: Chest, abdomen, b/l arms and legs with mildly erythematous maculopapular rash. No open wounds, warmth, edema, excoriation, blister, or streaking. HEENT: Head: AT/NC Eyes: EOM intact. Conjunctiva clear without inflammation or discharge. Ears: Hearing grossly normal. TMs intact, no bulging, erythema, or edema. Nose: Nasal mucosa pink and moist. Throat: Posterior oropharynx without exudates, erythema, or tonsillar enlargement. Uvula midline. NECK: Supple. Nontender. No lymphadenopathy. CHEST: CTAB. No r/r/w. No accessory muscle use. Breathing comfortably and in no distress. CV: Pulses intact. Cap refill <2seconds NEURO: Alert. PSYCH: Age appropriate behavior. Triage Information Reviewed: Yes Vital Signs On Initial Exam: Initial Vitals Temp Pulse Resp BP Pulse Ox 97.6 F 69 18 155/59 97 10/25/18 21:37 10/25/18 21:37 10/25/18 21:37 10/25/18 21:37 10/25/18 21:37 Vital Signs Reviewed: Yes Diagnostics - Vital Signs Vital Signs Temp Pulse Resp BP Pulse Ox 10/25/18 21:37 97.6 F 69 18 155/59 97 - Laboratory Lab Statement: Any lab studies that have been ordered have been reviewed, and results considered in the medical decision making process. Allergic Reaction Course/Dx - Course Course Of Treatment: Suspect contact vs environmental reaction. In the ED she was given dexamethasone and will dc with prednisone with instructions to f/u with PCP early next week for recheck. Return to ED if symptoms worsen or do not improve - Diagnoses Provider Diagnoses: Allergic reaction Discharge - Sign-Out/Discharge Documenting (check all that apply): Patient Departure Patient Received Moderate/Deep Sedation with Procedure: No - Discharge Plan Condition: Stable Disposition: HOME Prescriptions: predniSONE TAB* [Deltasone 20 MG TAB*] 40 mg PO DAILY #8 tab Patient Education Materials: General Allergic Reaction (ED) Referrals: Ender Ragland MD [Primary Care Provider] - 2 Days Additional Instructions: If you develop a fever, shortness of breath, chest pain, new or worsening symptoms - please call your PCP or go to the ED. Your blood pressure was high at todays visit. Please see your primary provider within 4 weeks for recheck and re-evaluation. 1) Start taking the PREDNISONE tomorrow as you were given a dose in the ER tonight 2) I strongly recommend that you schedule an appointment with your primary doctor for early next week for a recheck - Billing Disposition and Condition Condition: STABLE Disposition: Home
[2018-10-25] MEDS ORDERED: Dexamethasone TAB* 4 MG PO ONE (21:57)
--- OUTSIDE RECORDS SUMMARY | 2018-10-25 22:12 | XMS REPORT | Continuity of Care Document ---
:1930 External Reference #:[id number] Author Name Beatrice Crespo Care Team Providers Name Role Phone Ender Ragland MD Primary Care Physician Unavailable Payers Date Identification Numbers Payment Provider Subscriber Effective: 2013 Policy Number: [id number] Medicare Blue Ppo Delmi Calderon Group Number: [id number] [address] [address] PayID: [id number] [place] [address] Advance Directives Description No Information Available Problems Date Description Provider Status Onset: 07/21/2013 Acquired spondylolisthesis Kai Lubin M.D. Active Onset: 07/21/2013 Spinal stenosis of lumbar region Kai Lubin M.D. Active Family History Date Family Member(s) Observation Comments General Cancer General Heart Disease Social History Type Date Description Comments Sex Unknown Lives With Occupation Retired Cigarette Use Quit 5 Years Ago Smokeless Tobacco Never Used Smokeless Tobacco ETOH Use Negative For Denies alcohol use Recreational Drug Use Denies Drug Use Tobacco Use Start: Unknown End: Patient is a former smoker Unknown Smoking Status Reviewed: 10/14/18 Patient is a former smoker Exercise Type/Frequency Does not exercise Allergies, Adverse Reactions, Alerts Date Description Reaction Status Severity Comments 07/21/2013 Sulfa Antibiotics Active Rash 07/21/2013 Penicillins Hives Active 06/05/2016 Shellfish-derived Products Active Swelling Medications Medication Date Status Form Strength Qnty SIG Indications Ordering Provider Milk Of Active Suspension 400mg/5ML 355ml 30 ml's Unknown Magnesia 0 on the 3rd day with no bm in evening prn Mupirocin Active Ointment 2% 44gm apply to Unknown 0 skin lesions twice daily Atorvastatin Active Tablets 10mg 90tab 1 po qd Unknown Calcium 0 s Synthroid Active Tablets 50mcg 30tab 1 po qd Unknown 0 s Tylenol Active Capsules 325mg take two Unknown 0 tablets by mouth four times a day as needed Diazepam Active 5 mg Unknown 0 twice daily. Metoprolol Active Tablets ER 50mg 90tab 1 by Teetee Cisneros Succinate ER 0 24HR s mouth Foster, every N.P. day Amlodipine Active Tablets 5mg 45tab 1/2 by Teetee Annie. Besylate 0 s mouth Foster, every N.P. day Eliquis Active Tablets 5mg 90tab 1 by Teetee S. 0 s mouth Foster, twice a N.P. day Amiodarone HCL Active Tablets 200mg 45tab 1/2 tab Teetee S. 0 s by mouth Foster, every N.P. day Aspirin Hx Tablets 325mg 1 po prn Kai Liu 4 - pain Pollack, M.D. 6 Diazepam Hx Tablets 5mg 2tabs 1 tab 3 Unknown 0 - times daily 6 Losartan Hx Tablets 150mg 90tab 1 po qd Unknown Potassium 0 - s 6 Irbesartan Hx Tablets 75mg 1 by Unknown 0 - mouth Unknown every day Tramadol HCL Hx Tablets 50mg 30tab 1-2 Dirk 0 - s tablets Farzad, Unknown every 6 M.D. hours as needed Benadryl Hx Tablets 25mg 1 tab by Unknown 0 - mouth at night as 9 needed Allergy Hx Unknown Medications 0 - Unknown Immunizations Description No Information Available Vital Signs Date Vital Result Comment 10/14/2018 9:35am Height 62 inches 5'2" Weight 151.12 lb clothes/shoes Heart Rate 62 /min Radial BP Systolic Sitting 158 mmHg Lue reg cuff BP Diastolic Sitting 60 mmHg Lue reg cuff BMI (Body Mass Index) 27.6 kg/m2 Ejection Fraction 60-65% Echo 09/25/2018 10/08/2018 9:59am Heart Rate 60 /min BP Systolic 132 mmHg BP Diastolic 76 mmHg Respiratory Rate 20 /min Body Temperature 98.3 F 05/28/2018 12:03pm Height 61 inches 5'1" Heart Rate 86 /min BP Systolic 130 mmHg BP Diastolic 76 mmHg Respiratory Rate 18 /min Pain Level 8 12/20/2016 2:57pm Height 61 inches 5'1" Heart Rate 93 /min BP Systolic 150 mmHg BP Diastolic 69 mmHg Body Temperature 98.0 F Pain Level 10 07/05/2016 9:56am Height 62 inches 5'2" Weight 160.00 lb Pain Level 0 BMI (Body Mass Index) 29.3 kg/m2 06/05/2016 12:02pm Height 62 inches 5'2" Weight 160.00 lb Heart Rate 76 /min BP Systolic 122 mmHg BP Diastolic 66 mmHg BMI (Body Mass Index) 29.3 kg/m2 07/21/2013 2:37pm Height 62 inches 5'2" Weight 159.00 lb BP Systolic 102 mmHg BP Diastolic 50 mmHg Pain Level 10 right hip and leg BMI (Body Mass Index) 29.1 kg/m2 Results Description No Information Available Procedures Date Code Description Status 10/14/2018 80377 EKG Tracing & Interpretation Completed 09/25/2018 68189 ECHO Transthorasic Realtime 2D W Doppler & Color Flow Hosp Completed 09/23/2018 87862 Laparoscopy, Surgical, Appendectomy Completed 06/05/2016 36023 FX Patella [facility] Completed Encounters Type Date Location Provider Dx Diagnosis Office Visit 10/02/2018 [facility] K35.32 Acute appendicitis 9:14a Assoc,sangita Sarmiento [facility] with perf and loc Hospitalists peritonitis, w/o abscs J96.01 Acute respiratory failure with hypoxia A41.9 Sepsis, unspecified organism I48.91 Unspecified atrial fibrillation I10 Essential (primary) hypertension E03.9 Hypothyroidism, unspecified Office Visit 10/01/2018 9:13a [facility] Kaylynn J96.01 Acute respiratory Assoc,sangita Bhatt M.D. failure with Hospitalists hypoxia K35.32 Acute appendicitis with perf and loc peritonitis, w/o abscs I48.91 Unspecified atrial fibrillation A41.9 Sepsis, unspecified organism I10 Essential (primary) hypertension E03.9 Hypothyroidism, unspecified Office Visit 09/30/2018 9:13a [facility] J96.01 Acute respiratory Assocsangita M.D. failure with Hospitalists hypoxia K35.32 Acute appendicitis with perf and loc peritonitis, w/o abscs I48.91 Unspecified atrial fibrillation A41.9 Sepsis, unspecified organism I10 Essential (primary) hypertension E03.9 Hypothyroidism, unspecified Office Visit 09/29/2018 [place] [id number]. Acute appendicitis 9:12a Asssangita lowe M.D. with perf and loc Hospitalists peritonitis, w/o abscs I49.9 Cardiac arrhythmia, unspecified E03.9 Hypothyroidism, unspecified I10 Essential (primary) hypertension I48.91 Unspecified atrial fibrillation A41.9 Sepsis, unspecified organism Office Visit 09/28/2018 [place] [address]. Acute appendicitis 9:12a Assocsangita MD with perf and loc Hospitalists peritonitis, w/o abscs I49.9 Cardiac arrhythmia, unspecified E03.9 Hypothyroidism, unspecified I10 Essential (primary) hypertension Office Visit 09/27/2018 [place] [address] Acute appendicitis 9:12a Asssangita lowe MD with perf and loc Hospitalists peritonitis, w/o abscs I49.9 Cardiac arrhythmia, unspecified I10 Essential (primary) hypertension E03.9 Hypothyroidism, unspecified Office Visit 09/26/2018 [place] [address]. Acute appendicitis 9:12a Assocsangita MD with perf and loc Hospitalists peritonitis, w/o abscs I49.9 Cardiac arrhythmia, unspecified I10 Essential (primary) hypertension E03.9 Hypothyroidism, unspecified Office Visit 09/26/2018 [facility] Rehan Anant I48.91 Unspecified atrial 2:53p Of Autumn Gotti M.D., fibrillation FAC, [facility] R[facility] Post[facility] 11:03a Infectious [place], fever Diseases Brigitte Office Visit 09/25/2018 [place] [address]. Acute appendicitis 9:10a Assocsangita MD with perf and loc Hospitalists peritonitis, w/o abscs I49.9 Cardiac arrhythmia, unspecified I10 Essential (primary) hypertension E03.9 Hypothyroidism, unspecified Office Visit 09/25/2018 10:53a [facility] Arash Hurt I48.4 Atypical atrial Brigitte Conti flutter K35.32 Acute appendicitis with perf and loc peritonitis, w/o abscs R06.02 Shortness of breath R79.89 Other specified abnormal findings of blood chemistry Office Visit 09/25/2018 [facility] Lonnie D. R50.82 Postprocedural 10:58a For Infectious Brigitte Monte fever Diseases R78.81 Bacteremia I48.92 Unspecified atrial flutter Office Visit 09/24/2018 [facility] K35.32 Acute appendicitis 9:10a Assoc,sangita Sheth MD with perf and loc Hospitalists peritonitis, w/o abscs I49.9 Cardiac arrhythmia, unspecified I10 Essential (primary) hypertension E03.9 Hypothyroidism, unspecified F41.9 Anxiety disorder, unspecified Office Visit 09/23/2018 Surgical Donald Feng K35.33 Acute appendicitis 7:00a [facility] Of Autumn Rizo M.D. with perf and loc peritonitis, with abscs Office Visit 09/23/2018 [facility] K35.32 Acute appendicitis 9:09a Assoc,sangita Sheth MD with perf and loc Hospitalists peritonitis, w/o abscs I49.9 Cardiac arrhythmia, unspecified I10 Essential (primary) hypertension E03.9 Hypothyroidism, unspecified F41.9 Anxiety disorder, unspecified Office Visit 09/22/2018 9:09a [facility] Kaylynn R10.9 Unspecified Assocsangita M.D. abdominal pain Hospitalists I10 Essential (primary) hypertension E03.9 Hypothyroidism, unspecified Office Visit 05/28/2018 11:30a Orthopedic Marvin G56.01 Carpal tunnel Services Of MD Chhaya syndrome, right C.M.A. 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 738.4 Spondylolisthesis 2:20p Services Of Autumn Lubin M.D. Acquired 724.03 Spinal Stenosis, Lumbar Region W/ Neurogenic Claudication Plan of Treatment Future Appointment(s):12/10/2018 11:40 am - Arash Conti M.D. at [facility]10/23/2018 8:30 am - Nurse Visit cc at [facility]10/22/2018 10 :00 am - Nurse Visit cc at [facility]11/29/2018 11:30 am - Arash Conti M.D. at [facility]10/14/2018 - Teetee Sharpe, N.P.I48.91 Unspecified atrial fibrillationNew Orders:Stress Test, Pharmacologic Nuclear ( Lexiscan), Scheduled: 11/29/18Follow up:2mo OV Mauser after testing.Recommendations:Decrease amiodarone to 100mg yneukY58 Essential (primary ) hypertensionRecommendations:BP controlled. Continue amlodipine 2.5mg biwawH21.02 Shortness of breathNew Orders:Holter Monitor, Scheduled: Recommendations:HR may be too slow. We will get holter to make sure HR WNL
--- OUTSIDE RECORDS SUMMARY | 2018-10-25 22:12 | XMS REPORT | Continuity of Care Document ---
:1930 External Reference #:[id number] Author Name Beatrice Crespo Care Team Providers Name Role Phone Ender Ragland MD Primary Care Physician Unavailable Payers Date Identification Numbers Payment Provider Subscriber Effective: 2013 Policy Number: [id number] Medicare Blue Ppo Delmi Calderon Group Number: [id number] [address] [address] PayID: [id number] [place] [address] Advance Directives Description No Information Available Problems [...] Available Procedures Date Code Description Status 10/14/2018 93010 EKG Tracing & Interpretation Completed 09/25/2018 60099 ECHO Transthorasic Realtime 2D W Doppler & Color Flow Hosp Completed 09/23/2018 33439 Laparoscopy, Surgical, Appendectomy Completed 06/05/2016 57293 FX [facility]ella [facility] Completed Encounters Type Date Location Provider Dx Diagnosis Office Visit 10/02/2018 [facility] K35.32 Acute appendicitis 9:14a Assoc,sangita Sarmiento [employer] with perf and loc Hospitalists peritonitis, w/o abscs J96.01 Acute respiratory failure with hypoxia A41.9 Sepsis, unspecified organism I48.91 Unspecified atrial fibrillation I10 Essential (primary) hypertension E03.9 Hypothyroidism, unspecified Office Visit 10/01/2018 9:13a [facility] Kaylynn J96.01 Acute respiratory Assoc,sangita Bhatt M.D. failure with Hospitalists hypoxia K35.32 Acute appendicitis with perf and loc peritonitis, w/o abscs I48.91 Unspecified atrial fibrillation A41.9 Sepsis, unspecified organism I10 Essential (primary) hypertension E03.9 Hypothyroidism, unspecified Office Visit 09/30/2018 9:13a [facility] J96.01 Acute respiratory Assocsangita M.D. failure with Hospitalists hypoxia K35.32 Acute appendicitis with perf and loc peritonitis, w/o abscs I48.91 Unspecified atrial fibrillation A41.9 Sepsis, unspecified organism I10 Essential (primary) hypertension E03.9 Hypothyroidism, unspecified Office Visit 09/29/2018 [place] [id number]. Acute appendicitis 9:12a Asssangita lowe M.D. with perf and loc Hospitalists peritonitis, w/o abscs I49.9 Cardiac arrhythmia, unspecified E03.9 Hypothyroidism, unspecified I10 Essential (primary) hypertension I48.91 Unspecified atrial fibrillation A41.9 Sepsis, unspecified organism Office Visit 09/28/2018 [place] [address]. Acute appendicitis 9:12a Assocsangita MD with perf and loc Hospitalists peritonitis, w/o abscs I49.9 Cardiac arrhythmia, unspecified E03.9 Hypothyroidism, unspecified I10 Essential (primary) hypertension Office Visit 09/27/2018 [place] [address] Acute appendicitis 9:12a Asssangita lowe MD with perf and loc Hospitalists peritonitis, w/o abscs I49.9 Cardiac arrhythmia, unspecified I10 Essential (primary) hypertension E03.9 Hypothyroidism, unspecified Office Visit 09/26/2018 [place] [address]. Acute appendicitis 9:12a Assocsangita MD with perf and loc Hospitalists peritonitis, w/o abscs I49.9 Cardiac arrhythmia, unspecified I10 Essential (primary) hypertension E03.9 Hypothyroidism, unspecified Office Visit 09/26/2018 [facility] Rehan Anant I48.91 Unspecified atrial 2:53p Of Autumn Gotti M.D., fibrillation FAC, [facility] R50.82 Postprocedural 11:03a Infectious [place], fever Diseases Brigitte Office Visit 09/25/2018 [place] [address]. Acute appendicitis 9:10a Assocsangita MD with perf and loc Hospitalists peritonitis, w/o abscs I49.9 Cardiac arrhythmia, unspecified I10 Essential (primary) hypertension E03.9 Hypothyroidism, unspecified Office Visit 09/25/2018 10:53a [facility] Arash Hurt I48.4 Atypical atrial Brigitte Conti flutter K35.32 Acute appendicitis with perf and loc peritonitis, w/o abscs R06.02 Shortness of breath R79.89 Other specified abnormal findings of blood chemistry Office Visit 09/25/2018 [facility] Lonnie D. R50.82 Postprocedural 10:58a For Infectious Brigitte Monte fever Diseases R78.81 Bacteremia I48.92 Unspecified atrial flutter Office Visit 09/24/2018 [facility] K35.32 Acute appendicitis 9:10a Assoc,sangita Sheth MD with perf and loc Hospitalists peritonitis, w/o abscs I49.9 Cardiac arrhythmia, unspecified I10 Essential (primary) hypertension E03.9 Hypothyroidism, unspecified F41.9 Anxiety disorder, unspecified Office Visit 09/23/2018 Surgical Donald Feng K35.33 Acute appendicitis 7:00a [facility] Autumn Rizo M.D. with perf and loc peritonitis, with abscs Office Visit 09/23/2018 [facility] K35.32 Acute appendicitis 9:09a Assoc,sangita Sheth MD with perf and loc Hospitalists peritonitis, w/o abscs I49.9 Cardiac arrhythmia, unspecified I10 Essential (primary) hypertension E03.9 Hypothyroidism, unspecified F41.9 Anxiety disorder, unspecified Office Visit 09/22/2018 9:09a [facility] Kaylynn R10.9 Unspecified Assocsangita M.D. abdominal pain [...] W/ Neurogenic Claudication Plan of Treatment Future Appointment(s):12/16/2018 11:30 am - Teetee Sharpe, N.P. at [facility]10/23/2018 8:30 am - Nurse Visit cc at [facility]10/22/2018 10 :00 am - Nurse Visit cc at [facility]11/29/2018 11:30 am - Arash Conti M.D. at [facility]10/14/2018 - Teetee Sharpe N.P.I48.91 Unspecified atrial fibrillationNew Orders:Stress Test, Pharmacologic Nuclear ( Lexiscan), Scheduled: 11/29/18Follow up:2mo OV Mauser after testing.Recommendations:Decrease amiodarone to 100mg [id number] Essential (primary ) hypertensionRecommendations:BP controlled. Continue amlodipine 2.5mg legciW93.02 Shortness of breathNew Orders:Holter Monitor, Scheduled: Recommendations:HR may be too slow. We will get holter to make sure HR WNL
[2018-10-25 23:28] VITALS: BP 145/64
== END 2018-10-25 23:35 | disposition home or self-care (01) ==
LOC: ED 21:28
DX: T78.40XA Allergy, unspecified, initial encounter (principal); R21 Rash and other nonspecific skin eruption; Z87.891 Personal history of nicotine dependence; Z88.0 Allergy status to penicillin; Z88.2 Allergy status to sulfonamides
CPT/HCPCS: 99282; J8540

== ENCOUNTER 2019-03-29 10:30 | Emergency (ER) | payer MEDICARE ==
--- OUTSIDE RECORDS SUMMARY | 2019-03-29 10:53 | XMS REPORT | Continuity of Care Document ---
:1930 External Reference #:[id number] Author Name Anu Gomes Care Team Providers Name Role Phone Ender Ragland MD Primary Care Physician Unavailable Payers Date Identification Numbers Payment Provider Subscriber Effective: 2013 Policy Number: [id number] Medicare Blue Ppo Delmi Calderon Group Number: [id number] [address] [address] PayID: [id number] [place] [id number] Problems Active Problems Provider Date Acquired spondylolisthesis Kai Lubin M.D. Onset: 07/21/2013 Spinal stenosis of lumbar region Kai Lubin M.D. Onset: 07/21/2013 Family History Date Family Member(s) Observation Comments General Cancer General Heart Disease Siblings 3 siblings, cva hx Social History Type Date Description Comments Sex Unknown Lives With Occupation Retired Cigarette Use Quit 5 Years Ago Smokeless Tobacco Never Used Smokeless Tobacco ETOH Use Negative For Denies alcohol use Recreational Drug Use Denies Drug Use Tobacco Use Start: Unknown End: Patient is a former smoker Unknown Smoking Status Reviewed: 02/10/19 Patient is a former smoker Exercise Type/Frequency Does not exercise Allergies, Adverse Reactions, Alerts Active Allergies Reaction Severity Comments Date Sulfa Antibiotics Rash 07/21/2013 Penicillins Hives 07/21/2013 Shellfish-derived Products Swelling 06/05/2016 Medications Active Medications SIG Qnty Indications Ordering Provider Date Amlodipine Besylate 1 by mouth every 90tabs Arsah Hurt 10/15/2018 2.5mg day Brigitte Conti Tablets Milk Of Magnesia 30 ml's on the 355ml Unknown 3rd day with no 400mg/5ML Suspension bm in evening prn Atorvastatin Calcium 1 po qd 90tabs Unknown 10mg Tablets Synthroid 1 po qd 30tabs Unknown 50mcg Tablets Tylenol take two tablets Unknown 325mg Capsules by mouth four times a day as needed Diazepam 5 mg twice Unknown daily. Metoprolol Succinate 1/2 tab by mouth 90tabs Teetee Amelia Sharpe, ER every day N.P. 50mg Tablets ER 24HR Eliquis 1 by mouth twice 90tabs Teetee Sharpe, 5mg Tablets a day N.P. Wilfrido 128 One drop into Unknown 5% Ointment each eye 4 times daily History Medications Amiodarone HCL 1 by mouth every 90tabs Arash Hurt 10/15/2018 - 100mg odd day Brigitte Conti 12/10/2018 Tablets Aspirin 1 po prn pain Kai Lubin, 07/21/2013 - 325mg Tablets M.DSada 06/04/2016 Diazepam 1 tab 3 times 2tabs Unknown - 5mg Tablets daily 06/04/2016 Mupirocin apply to skin 44gm Unknown - 2% Ointment lesions twice 12/09/2018 daily Losartan Potassium 1 po qd 90tabs Unknown - 06/04/2016 150mg Tablets Irbesartan 1 by mouth every Unknown - 75mg Tablets day Unknown Tramadol HCL 1-2 tablets every 30tabs Harmeet Panda M.D. - 50mg 6 hours as needed Unknown Tablets Benadryl 1 tab by mouth at Unknown - 25mg Tablets night as needed 10/13/2018 Allergy Medications Unknown - Unknown Amlodipine Besylate 1/2 by mouth every 45tabs Teetee Sharpe, - 5mg day N.P. 10/15/2018 Tablets Amiodarone HCL 1/2 tab by mouth 45tabs Teetee Sharpe, - 200mg every day N.P. 10/15/2018 Tablets Prednisone as directed, Unknown - 20mg Tablets tapering doses 12/09/2018 Vital Signs Date Vital Result Comment 02/10/2019 9:17am Height 62 inches 5'2" Weight 153.25 lb with shoes Heart Rate 72 /min BP Systolic Standing 118 mmHg ule reg cuff BP Diastolic Standing 68 mmHg ule reg cuff BMI (Body Mass Index) 28.0 kg/m2 Ejection Fraction 60-65% Echo 09/25/18 12/10/2018 10:42am Height 62 inches 5'2" Weight 153.00 lb Clothes/shoes Heart Rate 64 /min Radial BP Systolic Sitting 148 mmHg Rue reg cuff BP Diastolic Sitting 68 mmHg Rue reg cuff BMI (Body Mass Index) 28.0 kg/m2 Ejection Fraction 60-65% Echo 09/25/2018 10/14/2018 9:35am Height 62 inches 5'2" Weight [...] leg BMI (Body Mass Index) 29.1 kg/m2 Procedures Date Code Description Status 12/10/2018 61770 EKG Tracing & Interpretation Completed 11/29/2018 28629 Treadmill Interp/Report Only Completed 11/29/2018 14482 Stress Test Supervsn W/Out I/R Completed 10/25/2018 62311 Holter Monitor Review (24 hr)dr salvador & interp only Completed 10/22/2018 34209 ECG Monitor/Recording W/Visual Superimposition Scanning Completed 10/14/2018 62115 EKG Tracing & Interpretation Completed 09/25/2018 78277 ECHO Transthorasic Realtime 2D W Doppler & Color Flow Hosp Completed 09/23/2018 02854 Laparoscopy, Surgical, Appendectomy Completed 06/05/2016 50511 FX Patella Care Completed Encounters Type Date Location Provider Dx Diagnosis Office Visit 12/10/2018 [facility] Arash Hurt I10 Essential ( primary) 11:40a Brigitte Conti hypertension K35.32 Acute appendicitis with perf and loc peritonitis, w/o abscs I48.0 Paroxysmal atrial fibrillation Office Visit 10/14/2018 10:00a [facility] Teetee S. I48.0 Paroxysmal atrial Foster, N.P. fibrillation I10 Essential (primary) hypertension R06.02 Shortness of breath Office Visit 10/02/2018 [facility] K35.32 Acute appendicitis 9:14a Assoc,sangita Sarmiento [facility] with perf and loc Hospitalists peritonitis, w/o abscs J96.01 Acute respiratory failure with hypoxia A41.9 Sepsis, unspecified organism I48.91 Unspecified atrial fibrillation I10 Essential (primary) hypertension E03.9 Hypothyroidism, unspecified Office Visit 10/01/2018 9:13a [facility] Kaylynn J96.01 Acute respiratory Assoc,sangita Bhatt M.D. failure with Hospitalists hypoxia K35.32 Acute appendicitis with perf and loc peritonitis, w/o abscs I48.91 Unspecified atrial fibrillation A41.9 Sepsis, unspecified organism I10 Essential (primary) hypertension E03.9 Hypothyroidism, unspecified [facility] K[facility].32 Acute 8:14a Rahul Monte M.D. appendicitis with Diseases perf and loc peritonitis, w/o abscs Office Visit 09/30/2018 [facility] Kaylynn Bhatt, J96.01 Acute respiratory 9:13a Assocsangita M.D. failure with Hospitalists hypoxia K35.32 Acute appendicitis with perf and loc peritonitis, w/o abscs I48.91 Unspecified atrial fibrillation A41.9 Sepsis, unspecified organism I10 Essential (primary) hypertension E03.9 Hypothyroidism, unspecified Office Visit 09/29/2018 [facility] K35.32 Acute appendicitis 9:12a sangita Lal M.D. with perf and loc Hospitalists peritonitis, w/o abscs I49.9 Cardiac arrhythmia, unspecified E03.9 Hypothyroidism, unspecified I10 Essential (primary) hypertension I48.91 Unspecified atrial fibrillation A41.9 Sepsis, unspecified organism Office Visit 09/28/2018 [facility] K35.32 Acute appendicitis 9:12a sangita Lal MD with perf and loc Hospitalists peritonitis, w/o abscs I49.9 Cardiac arrhythmia, unspecified E03.9 Hypothyroidism, unspecified I10 Essential (primary) hypertension Office Visit 09/27/2018 [facility] Lonnie Henry K35.32 Acute 8:13a Rahul Monte M.D. appendicitis with Diseases perf and loc peritonitis, w/o abscs Office Visit 09/27/2018 [facility] Domenic, K35.32 Acute 9:12a sangita Lal MD appendicitis with Hospitalists perf and loc peritonitis, w/o abscs I49.9 Cardiac arrhythmia, unspecified I10 Essential (primary) hypertension E03.9 Hypothyroidism, unspecified Office Visit 09/26/2018 [facility] K35.32 Acute appendicitis 9:12a sangita Lal MD with perf and loc Hospitalists peritonitis, w/o abscs I49.9 Cardiac arrhythmia, unspecified I10 Essential (primary) hypertension E03.9 Hypothyroidism, unspecified [facility] R50.82 Postprocedural 11:03a For Rahul Monte M.D. fever Diseases Office Visit 09/26/2018 [facility] I48.91 Unspecified atrial 2:53p Cardiology Renee Gotti M.D., fibrillation Machine Fancy Stitcher FAC, FASMA Office Visit 09/25/2018 [facility] Arash Hurt I48.4 Atypical atrial 10:53a Cardiology Brigitte Conti flubonifacio K35.32 Acute appendicitis with perf and loc peritonitis, w/o abscs R06.02 Shortness of breath R79.89 Other specified abnormal findings of blood chemistry Office Visit 09/25/2018 [facility] K35.32 Acute appendicitis 9:10a Assocsangita MD with perf and loc Hospitalists peritonitis, w/o abscs I49.9 Cardiac arrhythmia, unspecified I10 Essential (primary) hypertension E03.9 Hypothyroidism, unspecified Office Visit 09/25/2018 [facility] Lonnie Henry R50.82 Postprocedural 10:58a For Infectious Brigitte Monte fever Diseases R78.81 Bacteremia I48.92 Unspecified atrial flutter Office Visit 09/24/2018 [facility] K35.32 Acute appendicitis 9:10a Assocsangita MD with perf and loc Hospitalists peritonitis, w/o abscs I49.9 Cardiac arrhythmia, unspecified I10 Essential (primary) hypertension E03.9 Hypothyroidism, unspecified F41.9 Anxiety disorder, unspecified Office Visit 09/23/2018 [facility] K35.32 Acute appendicitis 9:09a Assocsangita MD with perf and loc Hospitalists peritonitis, w/o abscs I49.9 Cardiac arrhythmia, unspecified I10 Essential (primary) hypertension E03.9 Hypothyroidism, unspecified F41.9 Anxiety disorder, unspecified Office Visit 09/23/2018 [facility] Feng K35.33 Acute appendicitis 7:00a [facility] M.[facility]. with perf and loc peritonitis, with abscs Office Visit 09/22/2018 [facility] Kaylynn R10.9 Unspecified 9:09a Assocsangita M.D. abdominal pain Hospitalists I10 Essential [...] r hand Office Visit 07/21/2013 Neurosurgery Kai Liu 738.4 Spondylolisthesis 2:20p [facility] Lubin M.D. Acquired 724.03 Spinal Stenosis, Lumbar Region W/ Neurogenic Claudication Plan of Treatment 02/10/2019 - Teetee Sharpe, N.P.I10 Essential (primary) hypertensionFollow up: OV JFM 07/20195841L39.32 Acute appendicitis with perforation and localized lxiqbazqsqZ27.0 Paroxysmal atrial fibrillationRecommendations:Decrease metoprolol to 1/2 tab of 50mg to see if this helps hair loss.
--- NOTE | 2019-03-29 11:10 | ED ---
Hypertension - HPI Summary HPI Summary: This patient is an 89 year old F brought to [facility] by EMS with a chief complaint of hypertension since last night 03/28/19. Symptoms aggravated by nothing. Symptoms alleviated by nothing. Patient reports she had an appendicitis perforated and was in the hospital for 10 days back in November 2018. Patient reports she was then on a monitor for possible Afib for 30 days and was taken off it this past Sunday. Patient reports her hypertension started after she was cutting back on her metoprolol from taking 1 pill to of a pill which started this week. Patient reports she took 2 halves of a metoprolol pill today at 0830 but at 0930 her BP was still high. Patient denies CP, SOB, AZAR, and changes in vision. Home Medications Medication Instructions Recorded Confirmed Type Atorvastatin Calcium 10 mg PO DAILY 09/22/13 11/28/18 History Diazepam 5 mg PO BID 09/22/13 11/28/18 History Levothyroxine Sodium [Synthroid] 50 mcg PO DAILY 09/22/13 11/28/18 History Acetaminophen [Extra Strength 650 mg PO QID PRN 12/20/15 11/28/18 History Acetaminop] Apixaban* [Eliquis*] 5 mg PO BID #60 tab 09/29/18 11/28/18 Rx amLODIPine TAB* [Norvasc 5 mg TAB*] 2.5 mg PO DAILY #15 tab 09/29/18 11/28/18 Rx Magnesium Hydroxide LIQ* [Milk of 30 ml PO SEE INSTRUCTIONS PRN 11/28/18 History Magnesia LIQ*] Metoprolol Succinate XL TAB* 50 mg PO DAILY 11/28/18 11/28/18 History [Toprol XL TAB*] Mupirocin 2% CREAM* [Bactroban 2% 1 applic TOPICAL BID 11/28/18 11/28/18 History CREAM*] Amiodarone TAB* [Cordarone TAB*] 100 mg PO SEE INSTRUCTIONS 11/29/18 11/29/18 History Irbesartan (NF) [Avapro (NF)] 150 mg PO DAILY 11/29/18 11/29/18 History - History of Current Complaint Chief Complaint: EDGeneral Stated Complaint: HIGH BLOOD PRESSURE PE REMS Time Seen by Provider: 03/29/19 10:31 Hx Obtained From: Patient Onset/Duration: Started Hours Ago, Still Present Timing: Constant Aggravating Factor(s): Nothing Alleviating Factor(s): Nothing - Allergies/Home Medications Allergies/Adverse Reactions: Allergies Allergy/AdvReac Type Severity Reaction Status Date / Time penicillin G Allergy Rash Verified 01/14/19 08:31 shellfish derived Allergy Hives Verified 01/14/19 08:31 Sulfa (Sulfonamide Allergy Hives Verified 01/14/19 08:31 Antibiotics) PMH/Surg Hx/FS Hx/Imm Hx Endocrine/Hematology History: Denies: Hx Anticoagulant Therapy, Hx Diabetes Cardiovascular History: Reports: Hx Angina - a flutter, Hx Hypercholesterolemia , Hx Hypertension Denies: Hx Pacemaker/ICD Respiratory History: Denies: Hx Asthma, Hx Chronic Obstructive Pulmonary Disease (COPD) GI History: Reports: Hx Gastroesophageal Reflux Disease Musculoskeletal History: Reports: Hx Arthritis Sensory History: Reports: Hx Contacts or Glasses - not with her Denies: Hx Eye Prosthesis, Hx Hearing Aid Opthamlomology History: Reports: Hx Contacts or Glasses - not with her Denies: Hx Eye Prosthesis Neurological History: Reports: Other Neuro Impairments/Disorders Denies: Hx Dementia Psychiatric History: Reports: Hx Anxiety Denies: Hx Panic Disorder - Surgical History Surgery Procedure, Year, and Place: [facility]- RESECTION. CYST - REMOVED FROM [facility] BREAST. TUBAL LIGATION Infectious Disease History: No Infectious Disease History: Denies: Traveled Outside the [place] in Last 30 Days - Family History Known Family History: Negative: Blood Disorder - Social History Alcohol Use: None Hx Substance Use: No Substance Use Type: Reports: None Hx Tobacco Use: Yes Smoking Status (MU): Former Smoker Type: Cigarettes Have You Smoked in the Last Year: No Review of Systems Positive: Other - denies changes in vision Positive: Other - hypertension. Negative: Chest Pain Negative: Shortness Of Breath Negative: Headache All Other Systems Reviewed And Are Negative: Yes Physical Exam - Summary Physical Exam Summary: General: obese elderly female. No acute distress. HEENT: Normocephalic, Atraumatic. Eyes: Conjuctiva normal, PERRL. Ears: TMs within normal limits. Nares: (-) discharge, (-) erythema. Oropharynx: Clear, mucous membranes moist, (-) exudates. Neck: Soft, FROM, (-) lymphadenopathy, (-) thyromegaly, (-) JVD. Cardiovascular: Normal sinus rhythm, (-) murmur. Lungs: Clear to auscultation bilaterally (-) wheezes, (-) rales, (-) rhonchi. Abdomen: Soft, non-tender, non-distended, (-) organomegaly, normal bowel sounds. Back: (-) CVA tenderness Extremities: No edema. Skin: Warm, dry, (-) rash. Neuro: Alert and oriented x3, no focal deficits. Psychiatric: Mood normal, affect normal. Triage Information Reviewed: Yes Vital Signs On Initial Exam: Initial Vitals Temp Pulse Resp BP Pulse Ox 97.7 F 76 17 156/96 97 03/29/19 10:35 03/29/19 10:35 03/29/19 10:35 03/29/19 10:35 03/29/19 10:35 Vital Signs Reviewed: Yes Diagnostics - Vital Signs Vital Signs Temp Pulse Resp BP Pulse Ox 03/29/19 10:35 97.7 F 76 17 156/96 97 - Laboratory Result Diagrams: 03/29/19 11:08 03/29/19 11:08 Lab Statement: Any lab studies that have been ordered have been reviewed, and results considered in the medical decision making process. - EKG 1111 Cardiac Rate: NL - 74 BPM Summary of EKG Findings: EKG at 1111 reveals normal sinus rhythm with rate of 74 BPM, no acute changes, no ischemic changes, non-stemi. This EKG was reviewed and interpreted by Dr. Hatch. Re-Evaluation - Re-Evaluation First Eval Re-Evaluation Time: 12:37 Comment: I have discussed results with the patient and (Sx) is resolved. Discussed symptoms that warrant immediate return to ED. Hypertension Course/Dx - Course Assessment/Plan: This patient is an 89 year old F brought to [facility] by EMS with a chief complaint of hypertension since last night 03/28/19. Patient reports her hypertension started after she was cutting back on her metoprolol from taking 1 pill to of a pill which started this week. Patient reports she took 2 quarters of a metoprolol pill today at 0830 but at 0930 her BP was still high. Patient denies CP, SOB, AZAR, and changes in vision. Physical Exam Findings reveal no abnormalities except that she is an obese elderly female. EKG at 1111 reveals normal sinus rhythm with rate of 74 BPM, no acute changes, no ischemic changes, non-stemi. Test results with no significant abnormalities except for INR 1.43 H, Creatinine 1.42 H, Alkaline Phosphatase 110 H. Patient will be discharged and follow up from Dr. Ragland within 3 days. if blood pressure remains high after 1/4 dose of metoprolol, she may repeat once until follow up. The patient is agreeable with this plan. - Diagnoses Provider Diagnoses: Hypertension Discharge ED - Sign-Out/Discharge Documenting (check all that apply): Patient Departure - discharge Patient Received Moderate/Deep Sedation with Procedure: No - Discharge Plan Condition: Stable Disposition: HOME Patient Education Materials: Hypertension (ED) Referrals: Ender Ragland MD [Primary Care Provider] - 3 Days Additional Instructions: Please follow up with your primary care physician within three days. Please return to ED for any new or worsening symptoms. - Billing Disposition and Condition Condition: STABLE Disposition: Home - Attestation Statements Document Initiated by Radha: Yes Documenting Scribe: Britney Howell Provider For Whom Radha is Documenting (Include Credential): Dr. Lizzette Hatch MD Scribe Attestation: Britney Solano, scribed for Dr. Lizzette Hatch MD on 03/29/19 at 1251. Scribe Documentation Reviewed: Yes Provider Attestation: The documentation as recorded by the Britney duggan accurately reflects the service I personally performed and the decisions made by me, Dr. Lizzette Hatch MD Status of Scribe Document: Viewed
[2019-03-29 11:18] LABS: ABS Basophils 0.1 10^3/ul (0-0.2); ABS Eosinophils 0.2 10^3/ul (0-0.6); ABS Lymphocytes 1.4 10^3/ul (1.0-4.8); ABS Monocytes 0.5 10^3/ul (0-0.8); ABS Neutrophils 6.5 10^3/ul (1.5-7.7); Eosinophil % 2.1 %; Hematocrit 41 % (35-47); Hemoglobin 13.9 g/dL (12.0-16.0); Lymphocyte % 16.4 %; Mean Corpuscular HGB Conc 34 g/dL (31-36); Mean Corpuscular Hemoglobin 30 pg (27-31); Mean Corpuscular Volume 89 fL (80-97); Platelet Count 251 10^3/uL (150-450); Red Cell Distribution Width 14 % (10-15); White Blood Count 8.7 10^3/uL (3.5-10.8)
[2019-03-29 11:27] LABS: INR 1.43 (0.82-1.09)
[2019-03-29 11:34] LABS: Albumin 4.3 g/dL (3.2-5.2); Albumin/Globulin Ratio 1.6 (1-3); BUN/Creatinine Ratio 13.4 (8-20); Calcium 9.5 mg/dL (8.6-10.3); EGFR African American 42.1 (>60); EGFR Non-African American 34.8 (>60); Globulin 2.7 g/dL (2-4); Potassium 4.3 mmol/L (3.5-5.0); Total Bilirubin 0.3 mg/dL (0.2-1.0)
[2019-03-29 11:36] LABS: Troponin I 0.01 ng/mL (<0.04)
[2019-03-29 12:37] VITALS: BP 147/72
== END 2019-03-29 12:42 | disposition home or self-care (01) ==
LOC: ED 10:30
DX: I10 Essential (primary) hypertension (principal); E78.00 Pure hypercholesterolemia, unspecified; K21.9 Gastro-esophageal reflux disease without esophagitis; F41.9 Anxiety disorder, unspecified; Z98.51 Tubal ligation status; Z87.891 Personal history of nicotine dependence; Z88.0 Allergy status to penicillin; Z88.2 Allergy status to sulfonamides; Z79.899 Other long term (current) drug therapy
CPT/HCPCS: 36415; 80053; 83880; 84484; 85025; 85610; 93005; 99282